=== PATIENT | male | born 1955 | race Caucasian/White ===

== ENCOUNTER → 2016-12-02 06:50 | Day surgery (SDC) | payer BC ==
[~2016-12-02 06:50] MED LIST: Buffered Lidocaine 1% SYRIN* 3 ML/SYR SYRINGE INTRADERM ONE; Bupivacaine 0.25% EPI 200,000* 30 ML SDV ONE; Dexamethasone IV* 4 MG/ML 1 ML (4 MG) IV SLOW PU ONE; Dexamethasone IV* 4 MG/ML 1 ML (4 MG) ONE; Famotidine IV* 10 MG/ML 2 ML (20 mg) IV ONE; Famotidine IV* 10 MG/ML 2 ML (20 mg) ONE; HYDROcodone/ACETAMIN 5-325 MG* 1 TAB PO PRN; Ketorolac INJ* 30 MG/ML 1 ML VIAL ONE; Lidocaine 2% PF* 5 ML VIAL ONE; Ondansetron INJ* 2 MG/ML VIAL ONE; PROCHLORPERAZINE INJ 5 MG/ML 2 ML VIAL IV PRN; Propofol* 10 MG/ML 20 ML BTL IV PUSH ONE; ceFAZolin 2 GM PREMIX(*) 2 GM/50 ML BAG IVPB ONE; fentaNYL* 50 MCG/ML 2 ML VIAL (100 MCG VIAL) IV PRN; fentaNYL* 50 MCG/ML 2 ML VIAL (100 MCG VIAL) ONE; methylPREDNISolone ACETATE 80* 80 MG/ML 1 ML VIAL ONE; oxyCODONE/Acetamin 5/325 MG* TAB PO PRN
[2016-12-02 10:59] VITALS: BP 117/81
--- NOTE | 2016-12-03 00:11 | OP ---
DATE OF OPERATION: 12/02/16 [facility] DATE OF : 59 SURGEON: Briana Gracía MD PHOTO EQUIPMENT TECHNICIAN: DELVIN Davis. Administrative Manager was needed for the entirety of the case to help with positioning, retraction, and was utilized throughout all portions of the case. ANESTHESIOLOGIST: Dr. Ronel Marino. ANESTHESIA: General. PRE-OP DIAGNOSES: Left knee medial meniscus tear and osteoarthritis. POST-OP DIAGNOSES: Medial and lateral meniscus tear as well as mild osteoarthritis. OPERATIVE PROCEDURE: Left knee arthroscopy with partial medial meniscectomy, partial lateral meniscectomy, chondroplasty of the medial and patellofemoral compartment. Injection of 80 mg of Depo-Medrol. COMPLICATIONS: None. ESTIMATED BLOOD LOSS: Minimal. INDICATIONS: Javon Cornejo is a 61-year-old male who has had persistent left knee pain with catching and locking mechanical symptoms. It has been going on for at least one year now. He states in the last few months, it waxed and waned, but in the last few weeks, it has increased significantly. He had an injection previously, which helped quite a bit with his pain. At this point , he has failed conservative management and would like to proceed with operative treatment. Risks and benefits were discussed at length included but were not limited to bleeding, infection, damage to nerves, vessels, surrounding structures, wound nonhealing, persistent pain, need for further surgery, worsening of arthritis, risk of anesthesia, risk of DVT, recurrence of Haney's cyst. He has elected to proceed. DESCRIPTION OF PROCEDURE: The patient was greeted in the preoperative area by the attending surgeon. Correct extremity was marked, consent was confirmed. The patient was brought back to the operating suite where he was placed in a supine position on the operating room table. He then underwent LMA intubation, which he tolerated without difficulty after which a nonsterile tourniquet was placed high in the proximal thigh. The lateral post was positioned. Knee was examined, found to have around 0 to 120 degrees of motion. Stable ligamentous exam and moderate effusion. After a miniature surgical pause, the left knee was intra-articularly injected with 0.25% Marcaine with epi. The left leg was then prepped and draped in the usual sterile fashion beginning with a chlorhexidine soap, scrub, and alcohol wipe, and a final prep with ChloraPrep. After appropriate surgical pause indicating site, side, procedure, administration of antibiotics, the anterolateral portal was made sharply with an 11 blade. The scope was introduced to the joint. There was abundant serous fluid that was present. The patella had grade 0 to 1 change. The trochlear had areas of grade 2 and 3 changes with unstable flaps. The medial and lateral gutters were without loose debris. There was abundant synovitis anteriorly. The scope was placed into the notch and the medial portal was made in outside- in fashion. Shaver was used to debride the abundant synovitis that was present. The ACL and PCL were intact, but has some evidence of degeneration. There was spiking of the tibial spine. The knee was lacking full extension on valgus stress and the medial compartment was examined. There were areas of grade 2 changes in the medial femoral condyle with unstable flaps that were debrided back. The medial meniscus was identified and had degenerative tearing posteriorly with unstable flaps. The neli and biters were used to debride this back. The tibial plateau had grade 2 changes with unstable flap, which was also debrided back using a chondroplasty. Once this compartment was complete, the knee was placed in a [id number] position and the lateral meniscus was examined. There were grade 1 changes to the femoral condyle and grade 1 changes to the tibial plateau. There was unstable fraying of the root of the meniscus, which was debrided back and there was mild unstable fraying within the body of the meniscus which was debrided back, but the vast majority of the meniscus was intact. The knee was then placed in extension and the synovectomy was performed with electrocautery to use to maintain hemostasis. A small chondroplasty of the trochlea was also done for the unstable flaps. The knee was then placed in extension. Medial compartment examined again and any further loose flaps were then debrided back. Final images were obtained. All loose debris and fluid were removed from the joint and the knee was intra- articularly injected with 0.25% Marcaine plain with 80 mg of Depo-Medrol. Portals were closed with 3-0 nylon. Sterile dressings were applied and he was awoken from anesthesia in stable condition. POSTOPERATIVE PLAN: He will be weightbearing as tolerated. He will not be allowed to run or jump or do very heavy impact activities for about 6 weeks. He will be discharged with pain medications. DVT prophylaxis was considered, but deferred due to no previous personal or family history. I will see the patient back in 10 to 14 days. CC: PEPE ____ [id number]/[facility] #: [id number] SALLY
== END | disposition home or self-care (01) ==
LOC: OR 06:50
PROVIDERS: ATTEND Orthopaedic Surgery
DX: S83.242A Other tear of medial meniscus, current injury, left knee, initial encounter (principal); S83.282A Other tear of lateral meniscus, current injury, left knee, initial encounter; X58.XXXA Exposure to other specified factors, initial encounter; M17.12 Unilateral primary osteoarthritis, left knee; Z87.891 Personal history of nicotine dependence
CPT/HCPCS: J0690; J1040; J1100; J1885; J2405; J2704; J3010

== ENCOUNTER 2018-02-01 06:23 | Day surgery (SDC) | payer BC, OTHER ==
--- NOTE | 2018-01-26 16:03 | HP ---
PREOPERATIVE HISTORY AND PHYSICAL: DATE OF ADMISSION/SURGERY: 02/01/18 - [facility] DATE OF OFFICE VISIT/ENCOUNTER: 01/19/18 ATTENDING SURGEON: Karo Tamez MD.* (DICTATED BY DELVIN HARDIN) PROCEDURE: Right wrist triangular fibrocartilage complex debridement, arthroscopy, possible scapholunate ligament repair. CHIEF COMPLAINT: Right wrist pain. HISTORY OF PRESENT ILLNESS: This is a 62-year-old male, who sustained injury to his right wrist in September 2017 when he fell off his truck at work. Since then, he has had persistent pain particularly on the ulnar aspect. An MRI showed a TFCC tear and a possible scapholunate ligament tear. Conservative treatment has failed to resolve his pain and he has now agreed to proceed with surgical intervention. PAST MEDICAL HISTORY: Unremarkable. PAST SURGICAL HISTORY: Bowel resection. CURRENT MEDICATIONS: None. ALLERGIES: No known drug allergies. FAMILY MEDICAL HISTORY: Noncontributory. SOCIAL HISTORY: The patient is currently unemployed. He is a former smoker, he quit approximately 6 years ago, prior to that he smoked a pack per day for approximately 25 years. He denies recreational drug use. He drinks alcohol on occasion. REVIEW OF SYSTEMS: General: Negative for fevers, chills or night sweats, unexplained weight or gain. No known anesthesia problems in the past. HEENT: Negative for headache, lightheadedness, syncopal episodes, visual changes. Integumentary: Negative for abrasions, lesions, or open wounds. Cardiothoracic : Negative for hypertension, chest pain, palpitations, edema. Respiratory: Negative for shortness of breath with exertion, chronic cough, wheezing. GI: Negative for nausea, vomiting, diarrhea, constipation, GERD. : Negative for nocturia, urinary frequency, urgency, history of UTIs, kidney problems. Musculoskeletal: Positive for current complaint. Neurological: Negative for paresthesias, numbness, history of seizure, stroke, poor balance. Endocrine: Negative for diabetes and thyroid issues. Hematologic: Negative for easy bruising, anemia, bleeding disorders, history of DVT. Infectious Disease: Negative for history of MRSA, hepatitis C, HIV. PHYSICAL EXAMINATION GENERAL: Well-developed, well-nourished, 62-year-old male, in no acute distress. VITAL SIGNS: Height 5 feet 11-1/2 inches, weight 215 pounds, pulse rate 70, blood pressure 126/78. HEENT: Normocephalic, atraumatic. Pupils are equal, round, and reactive to light and accommodation. Throat is clear. NECK: Supple. No palpable lymph nodes. PULMONARY: Lungs are clear to auscultation bilaterally. No wheezes, rales, or rhonchi. CARDIOVASCULAR: Regular rate and rhythm. S1, S2. No murmurs, rubs, or gallops. No edema. ABDOMEN: Positive bowel sounds, soft, nontender. NEUROLOGICAL: Alert and oriented x3. Cranial nerves II through XII are intact. Sensation is intact to light touch. MUSCULOSKELETAL: On exam of the right wrist, he has mild swelling visible along the dorsum of the wrist and down into the hand. There is tenderness to palpation just distal to the ulna and along the dorsum of the wrist. He has good motion in his wrist, but increased pain with both full flexion and extension as well as with full pronation. He does not have any limitations in pronation or supination. Increased pain with Vargas shift test. No click is palpable. Neurovascular function is intact. Good range of motion of his fingers. IMAGING STUDIES: MRI of the right wrist shows a tear in the TFCC and a possible scapholunate ligament tear. PLAN: The patient is scheduled to undergo a right wrist triangular fibrocartilage complex debridement, arthroscopy, possible scapholunate ligament repair with Dr. Tamez on 02/01/18. He will return to the office 9 to 10 days postop for followup and suture removal. He is planning on using over-the- counter medications for postoperative pain management. DELVIN HARDIN [id number]/[facility] #: [id number] [facility]OVE HOSPITALAnju
[~2018-02-01 06:23] MED LIST changes: +Buffered Lidocaine 0.9% SYRIN* 5 ML/SYR SYRINGE INTRADERM ONE; -Buffered Lidocaine 1% SYRIN* 3 ML/SYR SYRINGE INTRADERM ONE; -Bupivacaine 0.25% EPI 200,000* 30 ML SDV ONE; -Dexamethasone IV* 4 MG/ML 1 ML (4 MG) IV SLOW PU ONE; -Dexamethasone IV* 4 MG/ML 1 ML (4 MG) ONE; -Famotidine IV* 10 MG/ML 2 ML (20 mg) IV ONE; -Famotidine IV* 10 MG/ML 2 ML (20 mg) ONE; -HYDROcodone/ACETAMIN 5-325 MG* 1 TAB PO PRN; -Ketorolac INJ* 30 MG/ML 1 ML VIAL ONE; -Lidocaine 2% PF* 5 ML VIAL ONE; +Ondansetron INJ* 2 MG/ML VIAL IV ONE; -Ondansetron INJ* 2 MG/ML VIAL ONE; +Ondansetron ODT TAB* 4 MG ONE; -PROCHLORPERAZINE INJ 5 MG/ML 2 ML VIAL IV PRN; -Propofol* 10 MG/ML 20 ML BTL IV PUSH ONE; -ceFAZolin 2 GM PREMIX(*) 2 GM/50 ML BAG IVPB ONE; -fentaNYL* 50 MCG/ML 2 ML VIAL (100 MCG VIAL) IV PRN; -fentaNYL* 50 MCG/ML 2 ML VIAL (100 MCG VIAL) ONE; -methylPREDNISolone ACETATE 80* 80 MG/ML 1 ML VIAL ONE; -oxyCODONE/Acetamin 5/325 MG* TAB PO PRN
[2018-02-01] MEDS ORDERED: ceFAZolin 2 GM PREMIX (*) 2 GM/50 ML BAG IVPB ONE (06:33)
[2018-02-01] MEDS ORDERED: diPHENhydraMINE IV* 50 MG/ML 1 ml VIAL (BENADRYL) IV PRN (06:58)
[2018-02-01] MEDS ORDERED: Naloxone* 0.4 MG/ML 1 ML VIAL IV PRN (06:58)
[2018-02-01] MEDS ORDERED: fentaNYL* 50 MCG/ML 2 ML VIAL (100 MCG VIAL) IV PRN (06:58)
[2018-02-01] MEDS ORDERED: HYDROmorphone INJ* 1 MG/ML CARPUJECT SYRINGE IV PRN (06:58)
[2018-02-01] MEDS ORDERED: oxyCODONE/Acetamin 5/325 MG* TAB PO PRN (06:58)
[2018-02-01] MEDS ORDERED: PROCHLORPERAZINE INJ 5 MG/ML 2 ML VIAL IV PRN (06:58)
[2018-02-01] MEDS ORDERED: oxyCODONE TAB* 5 MG TAB PO PRN (06:58)
[2018-02-01] MEDS ORDERED: Acetaminophen TAB* 325 MG PO PRN (06:58)
[2018-02-01] MEDS ORDERED: fentaNYL* 50 MCG/ML 2 ML VIAL (100 MCG VIAL) ONE (07:00)
[2018-02-01] MEDS ORDERED: Midazolam* 1 MG/ML 2 ML VIAL (2 MG) ONE (07:00)
[2018-02-01] MEDS ORDERED: Lidocaine 2% MPF* 2 ML VIAL ONE (07:04)
[2018-02-01] MEDS ORDERED: Ketorolac INJ* 30 MG/ML 1 ML VIAL ONE (07:04)
[2018-02-01] MEDS ORDERED: Propofol* 10 MG/ML 20 ML BTL IV PUSH ONE ×2 (07:04→07:05)
[2018-02-01] MEDS ORDERED: Bupivacaine 0.5% SDV PF* 30ML VIAL ONE (07:23)
[2018-02-01] MEDS ORDERED: methylPREDNISolone ACETATE 80* 80 MG/ML 1 ML VIAL ONE (08:27)
[2018-02-01 09:19] VITALS: BP 118/85
--- NOTE | 2018-02-02 05:15 | OP ---
DATE OF OPERATION: 02/01/18 [facility] DATE OF : 59 SURGEON: Karo Tamez MD YOGA INSTRUCTOR: DELVIN Manuel ANESTHESIA: General. PRE-OP DIAGNOSES: Triangular fibrocartilage complex tear and possible scapholunate ligament tear of the right wrist. POST-OP DIAGNOSES: 1. Triangular fibrocartilage complex tear and possible scapholunate ligament tear of the right wrist. 2. Degenerative changes of the right wrist and synovitis. OPERATIVE PROCEDURE: Right wrist arthroscopy, TFCC debridement, and synovectomy. INDICATIONS: Javon is a 62-year-old man, who injured his right wrist at work. MRI shows a possible scapholunate ligament tear and a TFCC tear. He presents for right wrist arthroscopy, TFCC debridement, and possible scapholunate ligament repair. ESTIMATED BLOOD LOSS: Zero. TOURNIQUET TIME: About 40 minutes. OPERATIVE FINDINGS: There was a complex significant tear of the central portion of the TFCC. There was abundant surrounding synovitis. There was synovitis surrounding the scapholunate ligament and perhaps a partial tear, but I was not able to pass the scope between the scaphoid and lunate from either the mid carpal or the radiocarpal joint. There were degenerative changes on the radius mostly at the radial styloid. The articular surface of the capitate was in good condition. The articular surface of the scaphoid and lunate were also in good condition. DESCRIPTION OF PROCEDURE: The patient was brought to the operating room, was given a general anesthetic and placed in the supine position on the operating room table with a tourniquet around his right upper arm. Skin of his right upper extremity was prepped and draped in the usual sterile fashion. The hand and forearm were exsanguinated and the tourniquet elevated to 250 mmHg. Ten pounds of traction was placed across the wrist and then the wrist joint was filled with 10 cc of 0.5% plain Marcaine and the arthroscopy portals injected with Marcaine as well. A stab incision was made just distal to Franco's tubercle and the arthroscope was placed in the radiocarpal joint. Diagnostic arthroscopy was performed with the above- noted findings. A second portal was created at the 4-5 interval and a 2.0 Gator shaver was placed in the joint and with the biter, the torn portion of the TFCC was debrided back to stable base. Surrounding synovitis was debrided as well. A third stab incision was then made distal to the first and the arthroscope was placed in the mid carpal joint , again with the above-described findings. The arthroscopy instruments were removed and the wounds were closed in interrupted fashion with 4-0 nylon suture. 80 mg of Depo-Medrol with 3 cc of 1% plain lidocaine was injected into the radiocarpal joint and then the wounds were dressed with Xeroform, 4x4, Webril, and an Kameron wrap with a volar splint. The patient tolerated the procedure well and was brought to the recovery room in good condition. [id number]/[facility] #: [id number] SALLY
== END 2018-02-01 09:21 | disposition home or self-care (01) ==
LOC: OREAST 06:23
PROVIDERS: ATTEND Orthopaedic Surgery
DX: S66.811A Strain of other specified muscles, fascia and tendons at wrist and hand level, right hand, initial encounter (principal); Z87.891 Personal history of nicotine dependence; Z68.30 Body mass index [BMI] 30.0-30.9, adult; V87.8XXA Person injured in other specified noncollision transport accidents involving motor vehicle (traffic), initial encounter; Y92.89 Other specified places as the place of occurrence of the external cause; Y99.0 Civilian activity done for income or pay
CPT/HCPCS: A9270-GY; J0690; J1040; J1885; J2250; J2704; J3010

== ENCOUNTER 2018-02-25 17:48 | Inpatient (IN) | payer MEDICAID, OTHER ==
[2018-02-25 18:23] LABS: ABS Basophils 0.1 10^3/ul (0-0.2); ABS Eosinophils 0.2 10^3/ul (0-0.6); ABS Lymphocytes 2.2 10^3/ul (1.0-4.8); ABS Monocytes 0.6 10^3/ul (0-0.8); ABS Neutrophils 5.7 10^3/ul (1.5-7.7); ABS Nucleated RBC 0 10^3/ul; Hematocrit 41 % (42-52); Hemoglobin 14.3 g/dl (14.0-18.0); Lymphocyte % 25.5 % (25-47); Mean Corpuscular HGB Conc 35 g/dl (31-36); Mean Corpuscular Hemoglobin 30 pg (27-31); Mean Corpuscular Volume 86 fL (80-94); Mean Platelet Volume 7.3 um3 (7.4-10.4); Nucleated Red Blood Cells % 0.1; Platelet Count 234 10^3/ul (150-450); Red Blood Count 4.84 10^6/ul (4.00-5.40); Red Cell Distribution Width 14 % (10.5-15); White Blood Count 8.8 10^3/ul (3.5-10.8)
--- NOTE | 2018-02-25 18:35 | RAD ---
INDICATION: Left-sided chest pain with radiation to the left arm COMPARISON: Chest x-ray August 24, 2006 TECHNIQUE: Single AP portable view of the chest was obtained. FINDINGS: Image quality is compromised due to the relative inferiority of a portable chest x-ray. The heart and mediastinum exhibit normal size and contour. The lungs are grossly clear. There is no evidence of a large pleural effusion. Visualized bones are normal for the patient's age. IMPRESSION: No radiographic evidence for acute cardiopulmonary abnormality on this portable chest x-ray.
[2018-02-25 18:37] LABS: EGFR Non-African American 75.4 (>60)
[2018-02-25] MEDS ORDERED: Acetaminophen TAB* 325 MG PO PRN (20:55)
[2018-02-25] MEDS ORDERED: Morphine VIAL* 4 MG/ML VIAL (1 ml vial) IV PRN (21:00)
[2018-02-25] MEDS ORDERED: Nitroglycerin TAB 0.4 MG* 0.4 MG TAB SL PRN (21:01)
--- NOTE | 2018-02-25 21:35 | ED ---
Lexus Alexander Rebecca, scribed for Morgan Proctor MD on 02/25/18 at 1835 . HPI Chest Pain - HPI Summary HPI Summary: Pt is a 62 y/o M who presents to ED c/o CP for the last 2 days, gradually worsening. Pain has been intermittent since onset, alleviated by laying down, aggravated by exertion. Pain was not present upon waking up but whenever he attempts to be active, the pain is worse, proportionate to the level of exertion. Pain is located from the midsternum across the left side of the chest and radiates into the left shoulder/arm. Has taken 650 mg ASA today, which alleviated sx, though pain is gradually returning. On triage, pain was moderate ranked 4/10. Additionally c/o dizziness and lightheadedness when trying to hike , and L hand numbness. FHx CAD, no PMHx HTN, CAD. - History of Current Complaint Chief Complaint: EDChestPainROMI Time Seen by Provider: 02/25/18 18:22 Hx Obtained From: Patient Onset/Duration: Started Days Ago - 2 days, Still Present Timing: Intermittent Current Severity: Moderate Pain Intensity: 4 Pain Scale Used: 0-10 Numeric Chest Pain Location: Mid Sternal, Left Anterior Chest Pain Radiates: Yes Chest Pain Radiates To:: Arm - Left Aggravating Factor(s): Exertion Alleviating Factor(s): Other: - Laying down Associated Signs and Symptoms: Positive: Dizziness, Lightheadedness - Allergy/Home Medications Allergies/Adverse Reactions: Allergies Allergy/AdvReac Type Severity Reaction Status Date / Time No Known Allergies Allergy Verified 02/01/18 06:42 PMH/Surg Hx/FS Hx/Imm Hx Endocrine/Hematology History: Denies: Hx Anticoagulant Therapy, Hx Blood Disorders Cardiovascular History: Denies: Hx Coronary Artery Disease, Hx Hypertension Musculoskeletal History: Reports: Hx Arthritis - BOTH KNEES Sensory History: Denies: Hx Contacts or Glasses, Hx Hearing Aid Opthamlomology History: Denies: Hx Contacts or Glasses - Surgical History Surgery Procedure, Year, and Place: BOWEL SURGERY [place]. 11/2016 LEFT MM TEAR [facility] Hx Anesthesia Reactions: No Infectious Disease History: No Infectious Disease History: Denies: Traveled Outside the [place] in Last 30 Days - Family History Known Family History: Positive: Cardiac Disease, Hypertension, Diabetes, Other - HLD - Social History Alcohol Use: Rare Substance Use Type: Reports: None Smoking Status (MU): Former Smoker Type: Cigarettes Amount Used/How Often: 1PPD Have You Smoked in the Last Year: No Review of Systems Positive: Chest Pain Neurological: Other - Dizziness, lightheadedness Positive: Numbness - L hand numbness All Other Systems Reviewed And Are Negative: Yes Physical Exam - Summary Physical Exam Summary: Appearance: The patient is well-nourished in no acute distress and in no acute pain. Skin: The skin is warm and dry and skin color reflects adequate perfusion. HEENT: The head is normocephalic and atraumatic. The pupils are equal and reactive. The conjunctivae are clear and without drainage. Nares are patent and without drainage. Mouth reveals moist mucous membranes and the throat is without erythema and exudate. The external ears are intact. The ear canals are patent and without drainage. The tympanic membranes are intact. Neck: The neck is supple with full range of motion and non-tender. There are no carotid bruits. There is no neck vein distension. Respiratory: Chest is non-tender. Lungs are clear to auscultation and breath sounds are symmetrical and equal. Cardiovascular: Heart is regular rate and rhythm. There is no murmur or rub auscultated. There is no peripheral edema and pulses are symmetrical and equal. Abdomen: The abdomen is soft and non-tender. There are normal bowel sounds heard in all four quadrants and there is no organomegaly palpated. Musculoskeletal: There is no back tenderness noted. Extremities are non-tender with full range of motion. There is good capillary refill. There is no peripheral edema or calf tenderness elicited. Neurological: Patient is alert and oriented to person, place and time. The patient has symmetrical motor strength in all four extremities. Cranial nerves are grossly intact. Deep tendon reflexes are symmetrical and equal in all four extremities. Psychiatric: The patient has an appropriate affect and does not exhibit any anxiety or depression. Triage Information Reviewed: Yes Vital Signs On Initial Exam: Initial Vitals Temp Pulse Resp BP Pulse Ox 98.9 F 72 18 146/94 96 02/25/18 17:49 02/25/18 17:49 02/25/18 17:49 02/25/18 17:49 02/25/18 17:49 Vital Signs Reviewed: Yes Diagnostics - Vital Signs Vital Signs Temp Pulse Resp BP Pulse Ox 02/25/18 18:02 66 15 117/83 96 02/25/18 17:49 98.9 F 72 18 146/94 96 - Laboratory Lab Results: Lab Results 02/25/18 Range/Units 18:07 WBC 8.8 (3.5-10.8) 10^3/ul RBC 4.84 (4.00-5.40) 10^6/ul Hgb 14.3 (14.0-18.0) g/dl Hct 41 L (42-52) % MCV 86 (80-94) fL MCH 30 (27-31) pg MCHC 35 (31-36) g/dl RDW 14 (10.5-15) % Plt Count 234 (150-450) 10^3/ul MPV 7.3 L (7.4-10.4) um3 Neut % (Auto) 65.1 (38-83) % Lymph % (Auto) 25.5 (25-47) % Morrow % (Auto) 6.7 (0-7) % Eos % (Auto) 2.0 (0-6) % Baso % (Auto) 0.7 (0-2) % Absolute Neuts (auto) 5.7 (1.5-7.7) 10^3/ul Absolute Lymphs (auto) 2.2 (1.0-4.8) 10^3/ul Absolute Monos (auto) 0.6 (0-0.8) 10^3/ul Absolute Eos (auto) 0.2 (0-0.6) 10^3/ul Absolute Basos (auto) 0.1 (0-0.2) 10^3/ul Absolute Nucleated RBC 0 10^3/ul Nucleated RBC % 0.1 Result Diagrams: 02/25/18 18:07 02/25/18 18:07 Lab Statement: Any lab studies that have been ordered have been reviewed, and results considered in the medical decision making process. - Radiology CXR Xray Interpretation: No Acute Changes - No radiographic evidence for acute cardiopulmonary abnormality on this portable chest x-ray. ED physician reviewed this radiology report. Radiology Interpretation Completed By: Radiologist - EKG 1758 Cardiac Rate: NL - 64 bpm EKG Rhythm: Sinus Rhythm Chest Pain Course/Dx - Course Course Of Treatment: Mr. Cornejo presented to the emergency department with an unnerving story of chest pain with exertion over the last 2 days. He has no significant family history or medical history, however he does have about a 25- pack-year smoking history having quit 5 years ago. Initial EKG and troponin were negative the hospitalists were asked to consult on him and admit him for rule out. - Diagnoses Provider Diagnoses: Chest pain - Provider Notifications Discussed Care Of Patient With: Ronaldo Bailey Time Discussed With Above Provider: 19:25 Instructed by Provider To: Other - Accepts pt for admission - Critical Care Time Critical Care Time: 30-74 min Discharge - Sign-Out/Discharge Documenting (check all that apply): Discharge/Admit/Transfer - Admit - Discharge Plan Condition: Stable Disposition: ADMITTED TO [facility] Referrals: Non Staff,Doctor [Medical Doctor] - - Billing Disposition and Condition Condition: STABLE Disposition: Admitted to [facility] The documentation as recorded by the Lexus umaña Rebecca accurately reflects the service I personally performed and the decisions made by me, Morgan Proctor MD.
[2018-02-25] MEDS ORDERED: Enoxaparin(*) 40 MG/0.4 ML SYR SUBCUT SCH (23:00)
--- NOTE | 2018-02-25 23:22 | HP ---
ADMITTING HISTORY AND PHYSICAL: DATE OF ADMISSION: 02/25/18 CHIEF COMPLAINT: Exertional chest pain. HISTORY OF PRESENT ILLNESS/HOSPITAL COURSE: The patient is a 62-year-old gentleman who does not follow up regularly with primary care physician and hence no documented past medical history, who was in his usual state of health until a few hours prior to admission when he says that he went hiking with his family and experienced chest pain that he is unable to describe in quality. He mentions that the chest pain then radiated to his left arm and at the tips of his hands causing some numbing sensation, which lasted for a few hours. He mentions that the chest pain is exacerbated by exertion and gets better with rest after a few minutes to hours. He also mentions that he took two doses of 325 mg aspirin today, which he felt improved his chest pain. He took two doses of 325 mg aspirin because he already took one dose of 325 mg dose of aspirin initially and his thought that he only took one baby aspirin and encouraged him to take four tablets altogether, which he did. By the time he arrived in the ED, he was chest pain-free. The patient was also admitted and discharged last month for right wrist triangular fibrocartilage complex debridement with arthroscopy and was discharged in his usual state of health. PAST MEDICAL HISTORY: He notes that he does get a yearly checkup with a clinic that tested carotid arteries and his cholesterol and everything was "clear." However, he does not have a primary care physician that follows him and interpret these results. He describes a history of a possible carotid artery stenosis, though not enough to intervene. However, as mentioned, nobody follows these tests as an outpatient after the test is done. Conversation regarding need for primary care physician transpired during this visit. No other documented past medical history. PAST SURGICAL HISTORY: Bowel resection as well as status post right wrist triangular fibrocartilage complex debridement with arthroscopy last month. ALLERGIES: NKDA. FAMILY HISTORY: His mother has history of CHF and high cholesterol and diabetes , although unclear when she actually was diagnosed with heart disease. SOCIAL HISTORY: The patient is a full code. MOLST form had been updated and reviewed. The patient is currently unemployed and currently being cleared for worker's comp. He mentions that he is a former smoker that quit about 6 years ago and prior to that he smoked about one pack per day for about 25 years. He denies any recreational drug use, although he had some history with cocaine and marijuana, but has not had any contact with illicit drugs for about 20 years. He drinks alcohol on occasion. REVIEW OF SYSTEMS: Exertional chest pain as described above. Denied any shortness of breath. Denied any headache, dizziness, fevers, chills, nausea, vomiting, abdominal pain, diarrhea, constipation, pain, and/or increased frequency on urination, myalgias, arthralgias, throat pain, or new skin lesions. The rest of the 14-point review of systems were otherwise unremarkable. PHYSICAL EXAMINATION GENERAL APPEARANCE: The patient is awake, alert, and oriented x3, not in acute distress. VITAL SIGNS: Reveals the most recent vital signs of records with blood pressure of 119/84, heart rate of 61 per minute, respiratory rate of 20 per minute, saturating at 95% on room air. HEENT: Normocephalic, atraumatic. PERRLA. Extraocular muscles intact. Negative for icterus. Moist oral mucosa. Negative throat erythema. NECK: Soft, supple with no cervical lymphadenopathy. No JVD. CHEST: Clear to auscultation bilaterally. Good air entry. No wheezes, rales, no rhonchi. HEART: S1, S2 within normal limits. Regular rate and rhythm. No murmurs, rubs , or gallops. ABDOMEN: Soft, nondistended, nontender. Normoactive bowel sounds x4. PSYCHIATRIC: No active psychosis, depression, suicidal or homicidal ideations. SKIN: Warm to touch. ASSESSMENT AND PLAN: Are as follows: 1. Exertional chest pain. His KERRI score is currently 0. However, he does note cocaine use in the past as well as significant smoking history along with a possible family history of coronary artery disease and hence likely indicative of possible angina at this point. We will admit the patient and place the patient on telemetry, trend his troponins x3. First set of troponins have been reviewed along with the laboratories, all of which were unremarkable. A discussion during this visit transpired regarding plan of management. We will order for echocardiogram and a stress test. If stress test and the rest of the workup ordered in his hospitalization is unremarkable given his significant history and risk factors for coronary artery disease, he was advised to talk with his primary care physician for a possible CT calcium score if his stress test is found to be negative. A conversation of when the stress test could be done also transpired and I have informed them that since tomorrow is Wednesday, I am unsure whether his stress test could be done during the weekend. However, we will defer with the patient's hospitalist MD in a.m. to either refer the patient to cardiology if the patient wants to go home prior to completing his workup and hence we will defer. We will place the patient on aspirin 325 daily starting tomorrow since he received two doses today. We will place the patient on oxygen per protocol, morphine p.r.n. for breakthrough pain , uncontrolled by nitroglycerin sublingual p.r.n. As mentioned, the patient no longer has any chest pain by the time he arrived in the ER, and we will continue to observe. 2. Prophylaxis. We will place the patient on deep vein thrombosis prophylaxis. 3. Disposition. We will check for fasting lipid levels, HbA1c and TSH. We will continue watch for weaning as above. ADDENDUM: Pt was placed on Lovenox 1mg/kg SQ q12H x2 given mildly elevated troponin on second draw. Will defer with rounding team in AM to re-evaluate for any future needs of anticoagulation. [id number]/[facility] #: [id number] SALLY
[2018-02-26] MEDS ORDERED: Enoxaparin(*) 60 MG/0.6 ML SYR SUBCUT ONE
[2018-02-26 06:42] LABS: ABS Basophils 0.1 10^3/ul (0-0.2); ABS Eosinophils 0.2 10^3/ul (0-0.6); ABS Lymphocytes 2.2 10^3/ul (1.0-4.8); ABS Monocytes 0.6 10^3/ul (0-0.8); ABS Neutrophils 4.7 10^3/ul (1.5-7.7); ABS Nucleated RBC 0 10^3/ul; Eosinophil % 2.7 % (0-6); Hematocrit 42 % (42-52); Hemoglobin 14.6 g/dl (14.0-18.0); Lymphocyte % 28.6 % (25-47); Mean Corpuscular HGB Conc 34 g/dl (31-36); Mean Corpuscular Hemoglobin 30 pg (27-31); Mean Corpuscular Volume 86 fL (80-94); Mean Platelet Volume 7.4 um3 (7.4-10.4); Nucleated Red Blood Cells % 0; Platelet Count 211 10^3/ul (150-450); Red Cell Distribution Width 14 % (10.5-15); White Blood Count 7.7 10^3/ul (3.5-10.8)
[2018-02-26 07:01] LABS: EGFR Non-African American 77.1 (>60)
[2018-02-26] MEDS ORDERED: Morphine VIAL* 4 MG/ML VIAL (1 ml vial) IV PRN (07:57)
[2018-02-26] MEDS ORDERED: Aspirin TAB* 325 MG PO SCH (09:00)
[2018-02-26] MEDS: Atorvastatin* 80 MG TAB PO SCH (09:18)
[2018-02-26] MEDS: Metoprolol Tartrate TAB* 25 MG PO SCH ×2 (09:18→20:36)
[2018-02-26] MEDS: Heparin VIAL(*) 5000 UNITS/ML VIAL (FIVE THOUSAND) IV PRN (10:44)
[2018-02-26] MEDS: Heparin DRIP 25,000 UNITS(*) 25,000 UNITS/500 ML BAG IV SCH (10:44)
[2018-02-26] MEDS ORDERED: NIFEdipine CAP* 10 MG PO ONE (11:04)
--- NOTE | 2018-02-26 11:19 | PN ---
Cardiology Progress Note Date of Service: 02/26/18 - CC: chest and arm pain Full note to be dictated today. Pt exercises regularly on hills w/o co. Anginal symptoms started Wednesday with exertion. 8 hours angina yesterday, responded to NTG, but severe MESSER. This AM CP recurred after walking to bathroom, mid sternal to L shoulder and arm. NOW: residual LA numbness. CAD risks: in his youth heavy cocaine, d/c'd ciagarettes 6+ years ago, LDL 140 , pt denies HTN, DM, FHx. ECG normal Exam: no murmurs or rubs, good radial and femoral and PT pulses. No bruits, lungs clear. ECG with arm pain: NSR, normal ST's Peak troponin 0.19 A/P: 62 yo with NQMI, CP recurs with minimal stress. I suspect plaque cracked. Agree Heparin GTT, beta nathaly, ASA and high dose statin. Added procardia as pt had severe MESSER iwth NTG in ED. Will add Brilinta, discussed iwth Dr Darling. If unable to stabilize medically will take to [employer] over the weekend instead of Wednesday.
[2018-02-26] MEDS ORDERED: Ticagrelor* 90 MG TAB PO ONE (11:20)
[2018-02-26] MEDS ORDERED: Enoxaparin(*) 100 MG/ML SYR SUBCUT SCH (12:00)
--- NOTE | 2018-02-26 13:32 | PN ---
Subjective Date of Service: 02/26/18 Interval History: HOSPITALIST PROGRESS NOTE Patient seen and examined at bedside. Care reviewed and d/w Johanny Mays RN. He feels better today. States chest pain is resolved, but still has some left arm discomfort. No N/V or dyspnea. Family History: Unchanged from Admission Social History: Unchanged from Admission Past Medical History: Unchanged from Admission Objective Active Medications: Acetaminophen (Tylenol Tab*) 650 mg PO Q4H PRN PRN Reason: FEVER/PAIN Last Admin: 02/26/18 10:35 Dose: 650 mg Aspirin (Aspirin 81 Mg Chew Tab*) 81 mg PO DAILY [facility] Atorvastatin Calcium (Lipitor*) 80 mg PO DAILY [facility] Last Admin: 02/26/18 09:18 Dose: 80 mg Heparin Sodium (Porcine) (Heparin Vial(*)) 0 units IV .PER PROTOCOL PRN PRN Reason: SEE PROTOCOL Last Admin: 02/26/18 10:44 Dose: 4,000 units Heparin Sodium/Dextrose (Heparin Drip 25,000 Units(*)) 25,000 units in 500 mls @ 0 mls/hr IV PER RATE [facility]; Protocol Last Admin: 02/26/18 10:44 Dose: 20 mls/hr Metoprolol Tartrate (Lopressor Tab*) 25 mg PO BID [facility] Last Admin: 02/26/18 09:18 Dose: 25 mg Morphine Sulfate (Morphine Vial*) 2 mg IV Q6H PRN PRN Reason: PAIN Nitroglycerin (Nitroglycerin Tab 0.4 Mg*) 0.4 mg SL Q5M PRN PRN Reason: ANGINA Last Admin: 02/26/18 06:32 Dose: 0.4 mg Ticagrelor (Brilinta*) 90 mg PO BID [facility] Vital Signs - 8 hr 02/26/18 02/26/18 02/26/18 06:25 07:12 07:58 Temperature 97.7 F Pulse Rate 65 67 Respiratory 19 Rate Blood Pressure 143/95 115/85 (mmHg) O2 Sat by Pulse 98 98 Oximetry 02/26/18 11:02 Temperature 98.2 F Pulse Rate 61 Respiratory 20 Rate Blood Pressure 142/90 (mmHg) O2 Sat by Pulse 97 Oximetry Oxygen Devices in Use Now: None Appearance: Pleasant gentleman lying in bed in NAD. Eyes: No Scleral Icterus Ears/Nose/Mouth/Throat: Mucous Membranes Moist Neck: Trachea Midline Respiratory: Symmetrical Chest Expansion and Respiratory Effort, Clear to Auscultation Cardiovascular: NL Sounds; No Murmurs; No JVD, RRR Abdominal: NL Sounds; No Tenderness; No Distention Extremities: No Edema Neurological: Alert and Oriented x 3, NL Muscle Strength and Tone Result Diagrams: 02/26/18 06:06 02/26/18 06:06 Assess/Plan/Problems-Billing Assessment: Mr. Cornejo is a 62yo M with a prior h/o tobacco abuse, bowel resection, limited contact with healthcare system, who presented to ED with c/o exertional CP, found to have NSTEMI. - Patient Problems (1) NSTEMI (non-ST elevated myocardial infarction) Comment: - Patient presented after episodes of exertional chest pain (while weeding, then while hiking). - Chest pain free now, but has some left arm discomfort. Had CP relief with NTG , but developed severe MESSER after. - EKG shows no ischemic changes and troponin peaked at 0.19. - Medical management with Aspirin, Heparin drip, metoprolol, high dose statin. - Awaiting echocardiogram. - Cardiology consult requested. - Plan for cardiac cath 02/28/18 or sooner if not able to control symptoms with medication. - If pain recurs, will transfer to ICU for nitro drip. (2) DVT prophylaxis Comment: - Heparin drip. (3) Full code status Status and Disposition: Inpatient for management of NSTEMI. (Veronica [phone]) was called and updated.
--- NOTE | 2018-02-26 13:44 | CONS ---
CC: Hospitalist Service CONSULTATION REPORT: DATE OF CONSULT: 02/26/18 REASON FOR CONSULT: Chest pain and elevated troponins. CHIEF COMPLAINT: Chest and arm pain. HISTORY OF PRESENT ILLNESS: Mr. Cornejo is a 62-year-old male who does not see physicians and has been in overall good health, exercising regularly until earlier this week. The patient was biking aggressively with hills Wednesday or Wednesday of this week as he usually does and felt fine. Then Wednesday, he got up to do some weed eating and developed substernal chest discomfort that radiated to the left shoulder and arm. This cleared with rest. He then was hiking yesterday and the pain was very severe and he presented to the emergency room. He estimates he had 8 hours of chest pain yesterday. In the emergency department, he was given nitroglycerin with resolution of the pain and he said that this gave him a significant headache and the pain came back when the nitroglycerin wore off. The patient was made pain free yesterday and woke chest pain free and walked to the bathroom this morning and then the discomfort came back. He again had upper substernal chest pain radiating to the left shoulder and arm. At the time I saw him, he had metoprolol, high-dose statin and a heparin drip initiated with resolution of the chest and shoulder pain, but with residual left arm numbness. The patient denies any recent travel, any medication changes. No over-the- counter medications. No recent changes in behavior, activity. The patient denies orthopnea or PND. No recent fevers, chills, sweats, or any other illness. PAST MEDICAL HISTORY: The patient has a past medical history that he states is negative for diabetes, hypertension, dyslipidemia, hyperglycemia. Degenerative arthritis with medial meniscal tear followed by Dr. García and Dr. Tamez. Diverticulosis was seen on colonoscopy 2013. PAST SURGICAL HISTORY: Includes: 1. Right wrist triangular fibrocartilage complex debridement/arthroscopy on 08/09. 2. On 12/02/2016, left knee arthroscopy for medial meniscotomy. 3. 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 4. Viral meningitis (recurrent). CURRENT INPATIENT MEDICATIONS: Include: 1. Tylenol p.r.n. 2. Aspirin 325 mg a day. 3. Lipitor 80 mg a day. 4. Heparin drip. 5. Lopressor 25 mg b.i.d. 6. Morphine p.r.n. Earlier in the admission, he had received Lovenox and nitroglycerin drip. ALLERGIES: He has no known drug allergies. FAMILY HISTORY: Negative for coronary artery disease. He has a sister who has some congenital retardation and physical issues. Dr. Bailey note's document his mother has history of congestive heart failure, high cholesterol and diabetes. SOCIAL HISTORY: The patient is unemployed, very active in the house, and exercising as above. He stopped smoking approximately 6 years ago, smoking a pack a day for 25 years. The patient used cocaine heavily, but does not used any in many, many years. REVIEW OF SYSTEMS: As above. Negative fevers, chills, sweats, change of bowel or bladder habits. No recent [id number] medications. No recent travel. No change in physical behaviors. No orthopnea. No PND. Even in hindsight no chest pain prior to earlier this week. All other 14-point review of systems was negative. PHYSICAL EXAM: On exam, the patient is 5 feet 11 inches, weighs 214 pounds with the BMI of 29. Vital signs, on presentation in the emergency room, blood pressure 146/94, pulse was 72. Currently, blood pressure 142/90 with pulse of 62, oxygen saturation 97% on room air, and temperature 98.2. General Appearance : Centripetally overweight, somewhat older gentleman, lying at 40 degrees, comfortable, in no acute distress. Psychologically pleasant and cooperative. Neurologically awake, alert, and oriented to person, place, and time. Cranial nerves II through XII intact. Grossly normal sensory and motor function in the upper and lower extremities. Normal gait. Skin: Warm and dry. Age- appropriate changes. No cyanosis or rashes. HEENT: Pupils are equal and round. Mucous membranes moist. Neck: Without thyromegaly or lymphadenopathy. 2+ carotid pulses, free of bruits. Breath sounds clear with good effort. No wheezes, rales, or rhonchi. Coronary: S1 and S2 regular. No murmurs or rubs. Abdomen: No epigastric discomfort. Active bowel sounds. Soft, nontender. No hepatomegaly. Lower extremity showed 2+ femoral pulses, free of bruits. The distal extremities show 1 to 2+ posterior tibial pulses that are symmetrical. DIAGNOSTIC STUDIES/LAB DATA: White count 7.7, hemoglobin 14.6, hematocrit 42, platelets 211. PTT 33.4. Sodium 140, potassium 4.7, chloride 109, bicarb 26, BUN 16, creatinine 0.99. Troponin #1 of 0.1, troponin #2 of 0.19, troponin #3 of 0.16, troponin #4 of 0.12. Total cholesterol 205, triglycerides 101, LDL cholesterol 140, and HDL cholesterol 45. TSH 1.45. Hemoglobin A1c 5.9. A 12-lead ECG in the emergency department of 02/25/18 shows normal sinus rhythm at 64 beats per minute. QRS axis plus 60. Normal AV and IV conduction times and normal ST. Repeated ECG done this morning at 10:30 shows normal sinus rhythm at 60 beats per minute. QRS axis plus 30 with normal AV and conduction times and normal ST segments. SUMMARY: In summary, Mr. Cornejo is a 62-year-old male presenting with non-Q wave myocardial infarction with atherosclerotic risks of distant cocaine use, distant smoking, mild dyslipidemia, possible hypertension, and hyperglycemia based on presentation and lack of regular physician followup. The patient needs to go to cardiac catheterization. I am going to try to clear his residual pain. If we cannot, he will need to go to cath sooner than later. I am going to try Procardia to see if we can get him pain free with vasodilation. If not, we will need to resume his nitroglycerin drip despite his secondary to headache. I suspect this is plaque that has cracked and therefore initiate Brilinta in addition to the heparin drip and aspirin. I agree with the beta-nathaly, aspirin , and heparin drips initiated and we can titrate to vital signs and symptoms. Additional recommendations will be made pending his clinical course and response to the above measures. [id number]/[facility] #: [id number] [facility] CENTERAnju
[2018-02-26 15:31] LABS: Urine Appearance Cloudy; Urine Blood Negative (Negative); Urine Color Yellow; Urine Ketones Negative (Negative); Urine Protein Negative (Negative); Urine Urobilinogen Negative (Negative)
--- NOTE | 2018-02-26 15:36 | RAD ---
INDICATION: Headache, MO, heparin drip evaluate for hemorrhage. COMPARISON: There are no prior studies available for comparison. TECHNIQUE: Contiguous axial sections of the brain were obtained from the skull base to the vertex without contrast. FINDINGS: The ventricles, cisterns and sulci are enlarged consistent with diffuse atrophy. There is most prominent in the sulci in the frontal lobes. No significant focal abnormality or mass effect is seen. There is no evidence for hemorrhage. No significant focal osseous abnormality is seen. The visualized portion of the paranasal sinuses and mastoid air cells appear clear. There is a fat density lesion anterior to the right frontal bone in the scalp measuring 2.5 x 1.0 cm in size most consistent with a lipoma. IMPRESSION: 1. NO EVIDENCE FOR ACUTE INTRACRANIAL ABNORMALITY. 2. 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 RECOMMEND CLINICAL CORRELATION TO STABILITY.
[2018-02-26] MEDS: amLODIPine TAB* 5 MG PO SCH (16:29)
[2018-02-26] MEDS ORDERED: HYDROmorphone INJ* 0.5 MG/0.5 ML SYRINGE IV SLOW PU PRN (16:43)
--- NOTE | 2018-02-26 19:51 | PN ---
Hospitalist Progress Note Date of Service: 02/26/18 HOSPITALIST ADDENDUM Patient reevaluated at bedside around 5PM. Still c/o throbbing MESSER 9/10 intensity, but appears to be comfortable, talking to his and watching TV. Declines more pain medication at this time, aware it is available. This is not the worst MESSER of his life. CT brain was negative for bleeding. Neuro exam is normal with CN II-XII grossly intact and no other focal neuro deficit. States he has had multiple episodes of meningitis (not bacterial), at least 6 times, admitted to different hospitals in [place] and [place], with extensive w/u, all negative. 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 Last episode was 4 years ago and he was admitted to [facility] obtain records. This MESSER now is different from his prior episodes. Chest/arm pain is resolved, denies dyspnea or palpitations. He knows to warn us if symptoms return, even if mild, as plan would be to transfer to ICU for Nitro drip and contact Dr. Darling for possible emergent cath.
[2018-02-26] MEDS: Ticagrelor* 90 MG TAB PO SCH (20:35)
[2018-02-27] MEDS: Heparin VIAL(*) 5000 UNITS/ML VIAL (FIVE THOUSAND) IV PRN ×2 (00:44→14:13)
[2018-02-27 05:37] LABS: ABS Basophils 0 10^3/ul (0-0.2); ABS Eosinophils 0.2 10^3/ul (0-0.6); ABS Lymphocytes 2.1 10^3/ul (1.0-4.8); ABS Monocytes 0.6 10^3/ul (0-0.8); ABS Neutrophils 6.1 10^3/ul (1.5-7.7); ABS Nucleated RBC 0 10^3/ul; Eosinophil % 2.4 % (0-6); Hematocrit 44 % (42-52); Hemoglobin 15.1 g/dl (14.0-18.0); Lymphocyte % 23.7 % (25-47); Mean Corpuscular HGB Conc 34 g/dl (31-36); Mean Corpuscular Hemoglobin 30 pg (27-31); Mean Corpuscular Volume 86 fL (80-94); Mean Platelet Volume 7.2 um3 (7.4-10.4); Nucleated Red Blood Cells % 0.1; Platelet Count 220 10^3/ul (150-450); Red Blood Count 5.13 10^6/ul (4.00-5.40); Red Cell Distribution Width 14 % (10.5-15)
[2018-02-27 05:58] LABS: EGFR Non-African American 83.9 (>60)
[2018-02-27] MEDS: Aspirin 81 mg CHEW TAB* 81 MG TAB.CHEW PO SCH (07:12)
[2018-02-27] MEDS: Atorvastatin* 80 MG TAB PO SCH (07:12)
[2018-02-27] MEDS: Ticagrelor* 90 MG TAB PO SCH ×2 (07:12→20:41)
[2018-02-27] MEDS: amLODIPine TAB* 5 MG PO SCH (07:12)
[2018-02-27] MEDS: Metoprolol Tartrate TAB* 25 MG PO SCH ×2 (07:12→20:41)
[2018-02-27] MEDS ORDERED: diPHENhydraMINE PO* 25 MG PO ONE (08:33)
[2018-02-27] MEDS ORDERED: Diazepam TAB(*) 5 MG PO ONE (08:33)
[2018-02-27] MEDS: Heparin DRIP 25,000 UNITS(*) 25,000 UNITS/500 ML BAG IV SCH (10:14)
--- NOTE | 2018-02-27 15:04 | PN ---
Subjective Date of Service: 02/27/18 Interval History: HOSPITALIST PROGRESS NOTE Patient seen and examined at bedside. Care reviewed and d/w Johanny Mays RN. He feels well today. MESSER is much improved, no further episodes of chest, left shoulder or arm pain/numbness. Denies palpitations or dyspnea. Family History: Unchanged from Admission Social History: Unchanged from Admission Past Medical History: Unchanged from Admission Objective Active Medications: Acetaminophen (Tylenol Tab*) 650 mg PO Q4H PRN PRN Reason: FEVER/PAIN Last Admin: 02/26/18 10:35 Dose: 650 mg Amlodipine Besylate (Norvasc Tab*) 5 mg PO DAILY [facility] Last Admin: 02/27/18 07:12 Dose: 5 mg Aspirin (Aspirin 81 Mg Chew Tab*) 81 mg PO DAILY [facility] Last Admin: 02/27/18 07:12 Dose: 81 mg Atorvastatin Calcium (Lipitor*) 80 mg PO DAILY [facility] Last Admin: 02/27/18 07:12 Dose: 80 mg Heparin Sodium (Porcine) (Heparin Vial(*)) 0 units IV .PER PROTOCOL PRN PRN Reason: SEE PROTOCOL Last Admin: 02/27/18 14:13 Dose: 4,000 units Hydromorphone HCl (Dilaudid Inj*) 0.5 mg IV SLOW PU Q4H PRN PRN Reason: PAIN Last Admin: 02/26/18 17:44 Dose: 0.5 mg Heparin Sodium/Dextrose (Heparin Drip 25,000 Units(*)) 25,000 units in 500 mls @ 0 mls/hr IV PER RATE [facility]; Protocol Last Admin: 02/27/18 10:14 Dose: 24 mls/hr Sodium Chloride (Ns 0.9% 1000 Ml*) 1,000 mls @ 125 mls/hr IV .per rate [facility] Metoprolol Tartrate (Lopressor Tab*) 25 mg PO BID [facility] Last Admin: 02/27/18 07:12 Dose: 25 mg Nitroglycerin (Nitroglycerin Tab 0.4 Mg*) 0.4 mg SL Q5M PRN PRN Reason: ANGINA Last Admin: 02/26/18 06:32 Dose: 0.4 mg Ticagrelor (Brilinta*) 90 mg PO BID [facility] Last Admin: 02/27/18 07:12 Dose: 90 mg Vital Signs - 8 hr 02/27/18 02/27/18 02/27/18 07:18 07:41 11:14 Temperature 98.3 F 99.3 F Pulse Rate 67 64 Respiratory 16 16 16 Rate Blood Pressure 131/79 127/74 (mmHg) O2 Sat by Pulse 98 97 Oximetry Oxygen Devices in Use Now: None Appearance: Pleasant gentleman lying in bed in NAD. Eyes: No Scleral Icterus Ears/Nose/Mouth/Throat: Mucous Membranes Moist Neck: Trachea Midline Respiratory: Symmetrical Chest Expansion and Respiratory Effort, Clear to Auscultation Cardiovascular: NL Sounds; No Murmurs; No JVD, RRR Extremities: No Edema Neurological: Alert and Oriented x 3, NL Muscle Strength and Tone Result Diagrams: 02/27/18 05:29 02/27/18 05:29 Assess/Plan/Problems-Billing Assessment: Mr. Cornejo is a 62yo M with a prior h/o tobacco abuse, bowel resection, limited contact with healthcare system, who presented to ED with c/o exertional CP, found to have NSTEMI. - Patient Problems (1) NSTEMI (non-ST elevated myocardial infarction) Comment: - Patient presented after episodes of exertional chest pain (while weeding, then while hiking). - Chest pain free now, left arm discomfort resolved. - EKG shows no ischemic changes and troponin peaked at 0.19. - Medical management with Aspirin, Heparin drip, metoprolol, high dose statin. - Awaiting echocardiogram. - Cardiology consult appreciated. - Plan for cardiac cath 02/28/18 or sooner if not able to control symptoms with medication. - If pain recurs, will transfer to ICU for nitro drip. (2) DVT prophylaxis Comment: - Heparin drip. (3) Full code status Status and Disposition: Inpatient for management of NSTEMI. (Veronica [phone]).
--- NOTE | 2018-02-27 16:48 | ECHO ---
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 Technical Comments: The study quality is good. Completed at 1220. Left Ventricle: The left ventricular chamber size is normal. Mild concentric left ventricular hypertrophy is observed. Left ventricular systolic function is at the lower limits of normal. Base of the lateral wall suboptimally seen in 4 chamber view and subtle hypokineis on short axis view. The estimated ejection fraction is 50-55%. There is no consistent Doppler evidence of clinically significant diastolic dysfunction. Left Atrium: The left atrial chamber size is normal. Right Ventricle: The right ventricular cavity size is normal. The right ventricular global systolic function is low normal. Right Atrium: The right atrial cavity size is normal. Aortic Valve: The aortic valve is trileaflet. There is a trace of aortic regurgitation. There is no evidence of aortic stenosis. Mitral Valve: The mitral valve leaflets appear normal. There is a trace of mitral regurgitation. There is no evidence of mitral stenosis. Tricuspid Valve: The tricuspid valve leaflets are normal. Unable to estimate the right ventricular systolic pressure. There is no tricuspid stenosis. Pulmonic Valve: The pulmonic valve appears normal. There is no evidence of pulmonic regurgitation. There is no pulmonic stenosis. Pericardium: A pericardial fat pad is visualized. Aorta: There is no dilatation of the ascending aorta. There is no dilatation of the aortic arch. There is mild dilatation of the aortic root. Pulmonary Artery: The main pulmonary artery appears normal. Venous: The venous system is not well visualized. Conclusions Mild concentric left ventricular hypertrophy is observed. Left ventricular systolic function is at the lower limits of normal. Base of the lateral wall suboptimally seen in 4 chamber view and subtle hypokineis on short axis view. The estimated ejection fraction is 50-55%. The right ventricular global systolic function is low normal. There is a trace of aortic regurgitation. There is a trace of mitral regurgitation. No full transthoracic echo available to compare, EF on stress echo 2006 was 55% Measurements Name Value Normal Range RVIDd (AP) 2D 2.9 cm (0.9 - 2.6) RVDdMajor (2D) 3.3 cm (2.2 - 4.4) RAd ISD 4CH 3.3 cm (3.4 - 4.9) RA (A4C)W 3.2 cm (2.9 - 4.6) IVSd (2D) 1.2 cm (0.6 - 1) LVPWd (2D) 1.2 cm (0.6 - 1) LVIDd (2D) 4.1 cm (3.6 - 5.4) LVIDs (2D) 2.6 cm - LV FS (2D) 36 % (25 - 45) Aortic Annulus 2.4 cm (1.4 - 2.6) Ao root diameter (2D) 3.7 cm (2.1 - 3.5) Ascending Ao 2.9 cm (2.1 - 3.4) Aortic arch 2.9 cm (1.8 - 3.4) Descending Ao 0.7 cm - LA dimension (AP) 2D 3.2 cm (2.3 - 3.8) LAd ISD 4CH 4.5 cm (2.9 - 5.3) LA ISD 4CH W 2.7 cm (2.5 - 4.5) Name Value Normal Range LA ESV SP 4CH (A/L) 23 ml - LA ESV SP 2CH (A/L) 47 ml - LA ESV BP (A/L) 36 ml - LA ESV BP (A/L) index 16.49 ml/m2 - LA ESV SP 4CH (MOD) 21 ml - LA ESV SP 2CH (MOD) 44 ml - Name Value Normal Range MV E-wave Vmax 0.5 m/sec - MV deceleration time 288 msec - MV A-wave Vmax 0.6 m/sec - MV E:A ratio 0.83 ratio - LV septal e' Vmax 0.09 m/sec - LV lateral e' Vmax 0.08 m/sec - LV E:e' septal ratio 5.56 ratio - LV E:e' lateral ratio 6.25 ratio - Name Value Normal Range AV Vmax 1.3 m/sec - AV VTI 25.8 cm - AV peak gradient 7.19 mmHg - AV mean gradient 3.52 mmHg - LVOT Vmax 1 m/sec - LVOT VTI 19.3 cm - LVOT peak gradient 3.84 mmHg - LVOT mean gradient 1.58 mmHg - Name Value Normal Range PV Vmax 0.7 m/sec - PV peak gradient 1.72 mmHg -
--- NOTE | 2018-02-27 17:38 | PN ---
Subjective Date of Service: 02/27/18 - CC: MESESR and chest pain Interval History: Severe MESSER yesterday, resolved. No chest or arm pain today. The patient's informed me of the patient's hx recurrent meningitis (q 5 years), felt to be viral. Medications Active Medications: Acetaminophen (Tylenol Tab*) 650 mg PO Q4H PRN PRN Reason: FEVER/PAIN Last Admin: 02/26/18 10:35 Dose: 650 mg Amlodipine Besylate (Norvasc Tab*) 5 mg PO DAILY [facility] Last Admin: 02/27/18 07:12 Dose: 5 mg Aspirin (Aspirin 81 Mg Chew Tab*) 81 mg PO DAILY [facility] Last Admin: 02/27/18 07:12 Dose: 81 mg Atorvastatin Calcium (Lipitor*) 80 mg PO DAILY [facility] Last Admin: 02/27/18 07:12 Dose: 80 mg Heparin Sodium (Porcine) (Heparin Vial(*)) 0 units IV .PER PROTOCOL PRN PRN Reason: SEE PROTOCOL Last Admin: 02/27/18 14:13 Dose: 4,000 units Hydromorphone HCl (Dilaudid Inj*) 0.5 mg IV SLOW PU Q4H PRN PRN Reason: PAIN Last Admin: 02/26/18 17:44 Dose: 0.5 mg Heparin Sodium/Dextrose (Heparin Drip 25,000 Units(*)) 25,000 units in 500 mls @ 0 mls/hr IV PER RATE [facility]; Protocol Last Admin: 02/27/18 10:14 Dose: 24 mls/hr Sodium Chloride (Ns 0.9% 1000 Ml*) 1,000 mls @ 125 mls/hr IV .per rate [facility] Metoprolol Tartrate (Lopressor Tab*) 25 mg PO BID [facility] Last Admin: 02/27/18 07:12 Dose: 25 mg Nitroglycerin (Nitroglycerin Tab 0.4 Mg*) 0.4 mg SL Q5M PRN PRN Reason: ANGINA Last Admin: 02/26/18 06:32 Dose: 0.4 mg Ticagrelor (Brilinta*) 90 mg PO BID [facility] Last Admin: 02/27/18 07:12 Dose: 90 mg Objective Vital Signs: Temp Pulse Resp BP Pulse Ox 99.0 F 69 22 128/78 97 02/27/18 15:20 02/27/18 15:20 02/27/18 15:20 02/27/18 15:20 02/27/18 15:20 Oxygen Devices in Use Now: None Appearance: jovial appearing gentleman walking in his room, NAD Eyes: No Scleral Icterus, PERRLA Ears/Nose/Mouth/Throat: Clear Oropharnyx, Mucous Membranes Moist Neck: NL Appearance and Movements; NL JVP, No Thyroid Enlargement, Masses Respiratory: Symmetrical Chest Expansion and Respiratory Effort, Clear to Auscultation Cardiovascular: NL Sounds; No Murmurs; No JVD, RRR Abdominal: No Hepatosplenomegaly Extremities: No Edema, No Clubbing, Cyanosis Skin: No Rash or Ulcers Neurological: Alert and Oriented x 3, NL Muscle Strength and Tone Lines/Tubes/Other Access: Clean, Dry and Intact Peripheral IV Laboratory Results: 02/27/18 05:29 02/27/18 05:29 APTT 38.4 seconds (26.0-36.3) H 02/27/18 13:25 Total Bilirubin 0.40 mg/dL (0.2-1.0) 02/26/18 06:06 AST 13 U/L (13-39) 02/26/18 06:06 ALT 14 U/L (7-52) 02/26/18 06:06 Alkaline Phosphatase 80 U/L (34-104) 02/26/18 06:06 Total Protein 6.0 g/dL (6.4-8.9) L 02/26/18 06:06 Albumin 3.5 g/dL (3.2-5.2) 02/26/18 06:06 Globulin 2.5 g/dL (2-4) 02/26/18 06:06 Albumin/Globulin Ratio 1.4 (1-3) 02/26/18 06:06 Triglycerides 101 mg/dL 02/26/18 06:06 Cholesterol 205 mg/dL 02/26/18 06:06 LDL Cholesterol 140 mg/dL 02/26/18 06:06 HDL Cholesterol 45.0 mg/dL 02/26/18 06:06 TSH 1.48 mcIU/mL (0.34-5.60) 02/26/18 06:06 02/25/18 02/25/18 02/26/18 18:07 20:54 01:48 Troponin I 0.01 0.10 H* 0.19 H* 02/26/18 02/26/18 02/26/18 06:06 09:10 11:59 Troponin I 0.16 H* 0.12 H* 0.11 H* 02/26/18 02/26/18 02/26/18 17:14 20:14 22:43 Troponin I 0.10 H* 0.07 H* 0.07 H* 02/27/18 02/27/18 02:09 05:29 Troponin I 0.07 H* 0.06 H* Diagnostic Imaging: ECHO: EF 55%, subtle relative hypok base of the lateral wall. Good valve function. Assessment/Plan 62 yo with NQMI, CP resolved with medical management and troponins declining. CAD risks of mild dyslipidemia, probable HTN, metabolic syndrome, distant smoking and drug use. Plan: Cath in AM, Dr Darling has seen the patient. Continue current medications for now.
[2018-02-28] MEDS ORDERED: NS 0.9% 1000 ML* 1,000 ML IV SCH (06:00)
[2018-02-28] MEDS: Heparin DRIP 25,000 UNITS(*) 25,000 UNITS/500 ML BAG IV SCH (06:00)
[2018-02-28 06:27] LABS: ABS Basophils 0.1 10^3/ul (0-0.2); ABS Eosinophils 0.2 10^3/ul (0-0.6); ABS Monocytes 0.6 10^3/ul (0-0.8); ABS Neutrophils 6.3 10^3/ul (1.5-7.7); ABS Nucleated RBC 0 10^3/ul; Eosinophil % 2.1 % (0-6); Hematocrit 44 % (42-52); Hemoglobin 15.3 g/dl (14.0-18.0); Lymphocyte % 21.8 % (25-47); Mean Corpuscular HGB Conc 35 g/dl (31-36); Mean Corpuscular Hemoglobin 30 pg (27-31); Mean Corpuscular Volume 85 fL (80-94); Mean Platelet Volume 7.6 um3 (7.4-10.4); Nucleated Red Blood Cells % 0.1; Platelet Count 212 10^3/ul (150-450); Red Blood Count 5.17 10^6/ul (4.00-5.40); Red Cell Distribution Width 14 % (10.5-15); White Blood Count 9.2 10^3/ul (3.5-10.8)
[2018-02-28 06:46] LABS: EGFR Non-African American 76.2 (>60)
[2018-02-28] MEDS: Metoprolol Tartrate TAB* 25 MG PO SCH ×2 (07:18→20:00)
[2018-02-28] MEDS: Atorvastatin* 80 MG TAB PO SCH (07:18)
[2018-02-28] MEDS: amLODIPine TAB* 5 MG PO SCH (07:19)
[2018-02-28] MEDS: Ticagrelor* 90 MG TAB PO SCH ×2 (07:19→20:00)
[2018-02-28] MEDS: Aspirin 81 mg CHEW TAB* 81 MG TAB.CHEW PO SCH (07:19)
[2018-02-28] MEDS ORDERED: VERAPAMIL 2.5 MG/ML 2 ML VIAL ** 5 mg/2 ml ONE (07:59)
[2018-02-28] MEDS ORDERED: Heparin 2 UNITS/ML IVPREMIX* 3,000 ML IV ONE (07:59)
[2018-02-28] MEDS ORDERED: fentaNYL* 50 MCG/ML 2 ML VIAL (100 MCG VIAL) ONE (07:59)
[2018-02-28] MEDS ORDERED: Heparin(*) 1000 UNIT/ML 10 ML VIAL CATH LAB IV ONE (07:59)
[2018-02-28] MEDS ORDERED: nitroGLYCERIN DRIP* 25,000 MCG/250 ML BTL ONE (08:00)
[2018-02-28] MEDS ORDERED: Iohexol 350 (CONTRAST) 200 ML MDV IV ONE (08:00)
[2018-02-28] MEDS ORDERED: Lidocaine 1%* 5 ML VIAL ONE (08:03)
[2018-02-28] MEDS ORDERED: Bivalirudin(*) 250 MG VIAL ONE (08:33)
[2018-02-28] MEDS ORDERED: Nitroglycerin TAB 0.4 MG* 0.4 MG TAB SL PRN (09:08)
--- NOTE | 2018-02-28 09:55 | PN ---
Subjective Date of Service: 02/28/18 Interval History: HOSPITALIST PROGRESS NOTE Patient seen and examined at bedside. Care reviewed and d/w Clyde Figueroa RN. He feels well at this time. Denies CP, dyspnea. Mild MESSER still present. Family History: Unchanged from Admission Social History: Unchanged from Admission Past Medical History: Unchanged from Admission Objective Active Medications: Acetaminophen (Tylenol Tab*) 650 mg PO Q4H PRN PRN Reason: FEVER/PAIN Last Admin: 02/26/18 10:35 Dose: 650 mg Amlodipine Besylate (Norvasc Tab*) 5 mg PO DAILY [facility] Last Admin: 02/28/18 07:19 Dose: 5 mg Aspirin (Aspirin 81 Mg Chew Tab*) 81 mg PO DAILY [facility] Last Admin: 02/28/18 07:19 Dose: 81 mg Atorvastatin Calcium (Lipitor*) 80 mg PO DAILY [facility] Last Admin: 02/28/18 07:18 Dose: 80 mg Hydromorphone HCl (Dilaudid Inj*) 0.5 mg IV SLOW PU Q4H PRN PRN Reason: PAIN Last Admin: 02/26/18 17:44 Dose: 0.5 mg Sodium Chloride (Ns 0.9% 1000 Ml*) 1,000 mls @ 125 mls/hr IV .per rate [facility] Stop: 02/28/18 13:00 Last Admin: 02/28/18 06:02 Dose: 125 mls/hr Metoprolol Tartrate (Lopressor Tab*) 25 mg PO BID [facility] Last Admin: 02/28/18 07:18 Dose: 25 mg Nitroglycerin (Nitroglycerin Tab 0.4 Mg*) 0.4 mg SL Q5M PRN PRN Reason: ANGINA Last Admin: 02/26/18 06:32 Dose: 0.4 mg Ticagrelor (Brilinta*) 90 mg PO BID [facility] Last Admin: 02/28/18 07:19 Dose: 90 mg Vital Signs - 8 hr 02/28/18 02/28/18 02/28/18 03:15 07:18 07:19 Temperature 98.9 F 98.0 F Pulse Rate 72 63 Respiratory 16 16 16 Rate Blood Pressure 138/85 105/72 (mmHg) O2 Sat by Pulse 96 98 Oximetry 02/28/18 02/28/18 02/28/18 08:00 09:20 09:22 Temperature Pulse Rate 61 59 Respiratory 16 12 Rate Blood Pressure 113/79 (mmHg) O2 Sat by Pulse 98 98 Oximetry 02/28/18 02/28/18 09:30 09:33 Temperature 98.2 F Pulse Rate 59 61 Respiratory 25 20 Rate Blood Pressure 103/82 113/79 (mmHg) O2 Sat by Pulse 98 97 Oximetry Oxygen Devices in Use Now: None Appearance: Pleasant gentleman lying in bed in NAD. Eyes: No Scleral Icterus Ears/Nose/Mouth/Throat: Mucous Membranes Moist Neck: Trachea Midline Respiratory: Symmetrical Chest Expansion and Respiratory Effort, Clear to Auscultation Cardiovascular: RRR - Normal S1 and S2 Extremities: - - Hemostasis band right wrist, good capillary refill Neurological: Alert and Oriented x 3, NL Muscle Strength and Tone Result Diagrams: 02/28/18 05:41 02/28/18 05:41 Assess/Plan/Problems-Billing Assessment: Mr. Cornejo is a 62yo M with a prior h/o tobacco abuse, bowel resection, limited contact with healthcare system, who presented to ED with c/o exertional CP, found to have NSTEMI. - Patient Problems (1) NSTEMI (non-ST elevated myocardial infarction) Comment: - Patient presented after episodes of exertional chest pain (while weeding, then while hiking). - EKG showed no ischemic changes and troponin peaked at 0.19. - Cath showed 90% stenosis mid RCA, s/p stent. - Continue Aspirin, Brilinta, Metoprolol, and Atorvastatin. (2) Headache Comment: - States he has had multiple episodes of meningitis (not bacterial), at least 6 times, admitted to different hospitals in [place] and [place], with extensive w /u, all negative. 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 Last episode was 4 years ago and he was admitted to [facility] [place] - awaiting records. - Continue pain management PRN. (3) DVT prophylaxis Comment: - SQ Heparin. (4) Full code status Status and Disposition: Inpatient for management of NSTEMI.
[2018-03-01 06:20] LABS: ABS Basophils 0 10^3/ul (0-0.2); ABS Eosinophils 0.3 10^3/ul (0-0.6); ABS Lymphocytes 1.8 10^3/ul (1.0-4.8); ABS Monocytes 0.6 10^3/ul (0-0.8); ABS Neutrophils 5.3 10^3/ul (1.5-7.7); ABS Nucleated RBC 0 10^3/ul; Eosinophil % 3.6 % (0-6); Hematocrit 44 % (42-52); Lymphocyte % 22.7 % (25-47); Mean Corpuscular HGB Conc 34 g/dl (31-36); Mean Corpuscular Hemoglobin 29 pg (27-31); Mean Corpuscular Volume 86 fL (80-94); Mean Platelet Volume 7.5 um3 (7.4-10.4); Nucleated Red Blood Cells % 0.1; Platelet Count 240 10^3/ul (150-450); Red Cell Distribution Width 14 % (10.5-15); White Blood Count 8.1 10^3/ul (3.5-10.8)
[2018-03-01 06:30] LABS: EGFR Non-African American 82.9 (>60)
[2018-03-01] MEDS: Atorvastatin* 80 MG TAB PO SCH (08:41)
[2018-03-01] MEDS: amLODIPine TAB* 5 MG PO SCH (08:41)
[2018-03-01] MEDS: Metoprolol Tartrate TAB* 25 MG PO SCH (08:41)
[2018-03-01] MEDS: Aspirin 81 mg CHEW TAB* 81 MG TAB.CHEW PO SCH (08:41)
[2018-03-01] MEDS: Ticagrelor* 90 MG TAB PO SCH (08:41)
[2018-03-01 10:13] VITALS: BP 118/85
--- NOTE | 2018-03-01 23:15 | CATH ---
CARDIAC CATHETERIZATION AND INTERVENTIONAL REPORT: DATE OF PROCEDURE: 02/28/18 - ROOM #ICU-07 INDICATION FOR PROCEDURE: The patient with a non-ST elevation myocardial infarction, chest discomfort, acute coronary syndrome, assess for presence of significant coronary artery disease. PROCEDURE: Coronary arteriography, primary stenting of the mid right coronary artery utilizing a 3.0 x 20 mm long Synergy drug-eluting stent postdilated to 3.3 to 3.5 mm. The patient was interviewed and examined on the floor of the hospital where the risks and benefits were explained, he understood them and wished to proceed. EQUIPMENT UTILIZED: 1. Right radial artery sheath, a 6-Malawian Glidesheath. 2. Diagnostic coronary catheter - a TIG4 curve 5-Malawian catheter, JR4 curve 5- [place]awian catheter. 3. Exchange wire was a [place] exchange, length 260 cm wire. 4. Guiding catheter - a 6-Malawian FR4 curve guide catheter. 5. Interventional guidewire was a 190 cm All Star guidewire. 6. Drug eluting stent: It was a 3.0 x 20 mm long Synergy stent. 7. Post-stent deployment balloon dilation was a 3.25 x 12 mm long NC Emerge balloon. DESCRIPTION OF PROCEDURE: The patient had his radial artery assessed under ultrasound guidance on the floor of the hospital and it was found to be acceptable for approach. As such, this approach was used. He was brought down to the cardiovascular laboratory, where a formal time-out was performed. The patient was prepped and draped in a sterile fashion. Right radial artery was cannulated and a sheath was placed. Diagnostic coronary arteriography was performed utilizing the TIG4 and JR4 curve catheters. Following this, decision was made to intervene into the right coronary artery. An ACT was checked and found to be subtherapeutic. As such, an Angiomax bolus and an Angiomax drip was started and the heparin drip was stopped. The guide catheter was utilized to perform pre-intervention coronary arteriography of the right coronary artery. The interventional wire was passed down the right coronary artery into the distal segment and the stent was delivered to the area and deployed. Following this, post-deployment inflations were made with the NC Emerge balloon. The artery was then assessed afterwards in multiple views. At the end of the case, the catheter and sheath were removed and the hemostasis was obtained with a Vasc Band. The reverse Barbeau was a B. Total contrast used was 105 cc of Omnipaque dye. The radiation exposure included 12.6 minutes of fluoro time. The air kerma radiation was 1892 milligray. The DAP radiation was 11,042 microgray per meter squared. MEDICATIONS: Given during the procedure included: 1. Angiomax bolus. 2. Angiomax drip. 3. 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 RESULTS: CORONARY ARTERIOGRAPHY: A. Left coronary artery: 1. Left main - widely patent with minimal ostial 10% narrowing. 2. Left anterior descending artery - the very proximal portion of left anterior descending artery had a mild 15% to 20% narrowing noted. The left anterior descending artery traversed towards the apical region and supplied the apical region. It supplied a first diagonal branch followed by a second small caliber diagonal branch and a third bifurcating mid diagonal branch and a small fourth trivial diagonal branch. There were mild luminal irregularities in the mid segment of the LAD with luminal reduction noted to be as much as 35% to 40%. 3. Circumflex artery - a nondominant vessel supplying a very high first obtuse marginal branch followed by a trivial small second obtuse marginal branch. There was a moderate-sized third and fourth obtuse marginal branch and ended in a low- lying posterior left ventricular branch. There was a mid lesion eccentric in nature noted to be approximately 50% to 55%. The rest of the circumflex artery had mild luminal irregularities, but no critical stenosis. B. Right coronary artery - a dominant vessel supplying the PDA and multiple posterior left ventricular branches. There was mild disease of 30% to 35% in the proximal portion after a mild ortiz's crook. The mid portion of the right coronary artery before turning onto the inferior surface had a 90% eccentric hazy- looking lesion, which was felt to be the culprit lesion. INTERVENTION INTO MID RIGHT CORONARY ARTERY: - with primary stenting utilizing a 3.0 x 20 mm long synergy drug-eluting stent postdilated to 3.3 to 3.5 mm with KERRI-3 flow, 0% residual stenosis, and no dissection seen. OVERALL ASSESSMENT: Successful intervention into critically stenosed mid right coronary artery with primary stenting as mentioned. The patient will be maintained on dual- antiplatelet for a minimum of a year. Aggressive risk factor management should be pursued. The patient will be seen by me for a wound care followup within the next week and primary cardiac care through Dr. Johnna Lamb, who saw him in consultation in the hospital. [id number]/[facility] #: [id number] MTDAnju
--- NOTE | 2018-03-02 01:27 | DS ---
CC: Dr. Lamb; Dr. Darling * DISCHARGE SUMMARY: DATE OF ADMISSION: 02/26/18 DATE OF DISCHARGE: 03/01/18 PRIMARY CARE PROVIDER: None. Our office is in the process of arranging a primary care provider. DISCHARGE DIAGNOSIS: Non-ST elevation myocardial infarction, status post stent placement to the right coronary artery, that is a drug-eluting stent. MEDICATIONS AT DISCHARGE: Include: 1. Amlodipine 5 mg daily. 2. Aspirin 81 mg daily. 3. Lipitor 80 mg daily. 4. Metoprolol tartrate 25 mg b.i.d. 5. Brilinta 90 mg b.i.d. 6. Nitroglycerin tablet 0.4 mg sublingually every 5 minutes p.r.n. angina. LABORATORY DATA AND STUDIES PERFORMED DURING THE HOSPITAL STAY: Included: On 03/01/18, sodium of 136, potassium 4.7, chloride 107, carbon dioxide 22, BUN 20 , creatinine 0.93. Troponin peaked at 0.19 on 02/26/18. On 03/01/18, white blood cell count of 8.1, hemoglobin 15.0, hematocrit 44, platelet count 240. The patient's cholesterol profile showed triglycerides of 101, cholesterol total of 205, LDL of 140, and HDL of 45. TSH was 1.48 at admission. Cardiac catheterization was performed by Dr. Darling on 02/28/18 and the official report is pending at the time of dictation. Transthoracic echocardiogram obtained on 02/25/18 showed EF of 50% to 55% with mild LVH. There was trace mitral regurgitation and aortic regurgitation. Brain CT obtained on 02/26/18, impression: "No evidence for acute intracranial abnormality. Finding suggestive of lipoma of the scalp anterior to the right frontal lobe. Recommended clinical correlation as stability." Chest x-ray obtained on 02/25/18, impression: "No radiographic evidence of acute cardiopulmonary abnormality on this portable chest x-ray." HOSPITALIZATION COURSE: Javon Cornejo is a 62-year-old male, who does not have a primary care provider and who presented to [facility] complaining of exertional chest pain when hiking. The patient was admitted to the hospital, noted to have elevated troponins and anticoagulated with heparin drip. Cardiology consult with Dr. Lamb was obtained, who involved the Interventional data processing specialist, Dr. Darling. Dr. Darling performed a cardiac catheterization on 02/28/18 with stent placement into the mid RCA. The official report of cardiac catheterization is pending at the time of dictation. Postcardiac catheterization, the patient was observed overnight in the intensive care unit with no recurrence of chest pain. He was placed on dual antiplatelet therapy with Brilinta and aspirin. He was also given amlodipine, metoprolol and atorvastatin at discharge. He was noted to have dyslipidemia. His hemoglobin A1c was noted to be 5.9 on 02/25/18. He is going to be discharged home, scheduled appointment with Dr. Darling on 03/07/18 at 3:[address] Lamb's office is going to call patient with an appointment scheduled for a followup Cardiology. Our office is also in the process of arranging primary care provider for the patient for followup. DISCHARGE INSTRUCTIONS: Specific to postcardiac catheterization, activity and restrictions were given to the patient in a printout. PHYSICAL EXAMINATION AT THE TIME OF DISCHARGE: Blood pressure of 118/85, heart rate of 63 and regular, respiratory rate 17, oxygen saturation 95% on room air, temperature of 98.9. General Appearance: The patient is a very pleasant 62- year- old male, who is in no acute distress. Alert, awake and oriented x3. HEENT: Head atraumatic, normocephalic. Eyes: Pupils are equal, reactive to light and accommodation. Oropharynx is clear. Mucosa moist. Neck: Supple. No JVD. No bruits bilaterally. Cardiovascular: Regular rate and rhythm. No murmur. Respiratory: Clear to auscultation bilaterally. Abdomen: Soft, nontender. Bowel sounds are present in all 4 quadrants. Extremities: There is no edema. Pulses are +2 bilaterally. No clubbing or cyanosis. Right radial axis was noted and puncture site was palpated. There is good radial pulse noted. On further evaluation of the skin, the patient has right frontal lipoma approximately 3 to 4 cm in diameter. The area is nontender to palpation. Please note that this is a short summary of the patient's hospitalization. Please refer to further medical records for details. TIME SPENT: Approximately 45 minutes were spent on the patient's discharge. [id number]/[facility] #: [id number] [facility]
== END 2018-03-01 12:00 | disposition home or self-care (01) | DRG 174 ==
LOC: ED 17:48 → MEDTELE 20:55 → OBSVTOIN 02-26 13:50 → ICU 02-28 09:31
PROVIDERS: ADMIT Student in an Organized Health Care Education/Training Program; ATTEND Internal Medicine
PROC: B2111ZZ Fluoroscopy of Multiple Coronary Arteries using Low Osmolar Contrast (ICD-10-PCS; 2018-02-28)
PROC: 027034Z Dilation of Coronary Artery, One Artery with Drug-eluting Intraluminal Device, Percutaneous Approach (ICD-10-PCS; principal; 2018-02-28 07:30)
DX: I21.4 Non-ST elevation (NSTEMI) myocardial infarction (principal); R42 Dizziness and giddiness; K57.90 Diverticulosis of intestine, part unspecified, without perforation or abscess without bleeding; E78.5 Hyperlipidemia, unspecified; R73.9 Hyperglycemia, unspecified; I25.10 Atherosclerotic heart disease of native coronary artery without angina pectoris; I08.1 Rheumatic disorders of both mitral and tricuspid valves; M17.0 Bilateral primary osteoarthritis of knee; R51 Headache; Z83.3 Family history of diabetes mellitus; Z90.49 Acquired absence of other specified parts of digestive tract; Z79.82 Long term (current) use of aspirin; Z79.02 Long term (current) use of antithrombotics/antiplatelets; Z82.49 Family history of ischemic heart disease and other diseases of the circulatory system; Z83.49 Family history of other endocrine, nutritional and metabolic diseases; Z72.89 Other problems related to lifestyle; Z87.891 Personal history of nicotine dependence
CPT/HCPCS: 36415; 70450; 71045; 76937; 80048; 80053; 80061; 81003; 82565; 83036; 83605; 84443; 84484; 84520; 85025; 85347; 85730; 93005; 93306; 93454; 99283; A9270-GY; C1725; C1769; C1876; C1887; C9600-RC; G0378; J0583; J1170; J1644; J1650; J2270; J3010

== ENCOUNTER 2019-11-22 15:02 | Observation (INO) | payer BC ==
--- NOTE | 2019-11-22 15:11 | ED ---
HPI Chest Pain - HPI Summary HPI Summary: 64 y/o male HTN, CAD p/w CP. Patient reports CP since . [place] like pain radiating from chest to back "in knot". Also reports left arm pain and parethesias. Feels similar to pain he had before in 2018 when he had an NSTEMI and stent. Additionally felt SOB w exertion. No cough or fever. No recent travel. Denies orthopnea. Had cardiac cath [place] [address] Darling. Had stent placed in the right coronary artery. Surgeries: intestine, meniscus, wrist FHx: CAD, ID, HTN. Brother w Bypass. Social: No tobacco, social drinking - History of Current Complaint Time Seen by Provider: 11/22/19 15:03 Hx Obtained From: Patient Onset/Duration: Started Days Ago - 6, Still Present Current Severity: Moderate Pain Intensity: 6 Pain Scale Used: 0-10 Numeric Chest Pain Radiates: Yes Chest Pain Radiates To:: Back Character: Other: - "in knot" Aggravating Factor(s): Nothing Alleviating Factor(s): Nothing Associated Signs and Symptoms: Positive: Negative - orthopnea, Other: - left arm pain and parethesias, SOB with exertion. Negative: Fever, Cough - Additional Pertinent History Primary Care Physician: [id number] - Allergy/Home Medications Allergies/Adverse Reactions: Allergies Allergy/AdvReac Type Severity Reaction Status Date / Time No Known Allergies Allergy Verified 02/01/18 06:42 Home Medications: Home Medications Aspirin 81 mg CHEW TAB* 81 mg PO DAILY #30 tab.chew 03/01/18 [Rx Confirmed 11/21] Atorvastatin* [Lipitor 80 MG*] 80 mg PO DAILY #30 tab 03/01/18 [Rx Confirmed 09/11] Glucosa Sumner 2Kcl/Chondroitin Sumner [Glucosamine & Chondroitin Cap] 1 each PO DAILY 11/22/19 [History Confirmed 11/22/19] Metoprolol Succinate XL TAB* [Toprol XL TAB*] 25 mg PO DAILY 11/22/19 [History Confirmed 11/22/19] Nitroglycerin TAB 0.4 MG* 0.4 mg SL Q5M PRN 11/22/19 [History Confirmed 11/22/19 ] Ticagrelor* [Brilinta 90 MG*] 60 mg PO BID 11/22/19 [History Confirmed 11/22/19] amLODIPine TAB* [Norvasc 5 mg TAB*] 10 mg PO DAILY 11/22/19 [History Confirmed 11/22/19] PMH/Surg Hx/FS Hx/Imm Hx Endocrine/Hematology History: Denies: Hx Anticoagulant Therapy Cardiovascular History: Reports: Hx Coronary Artery Disease, Hx Hypertension Musculoskeletal History: Reports: Hx Arthritis - OA : BOTH KNEES Sensory History: Reports: Hx Contacts or Glasses Opthamlomology History: Reports: Hx Contacts or Glasses Neurological History: Reports: Other Neuro Impairments/Disorders - multiple Spinal meningitis Hx - Surgical History Surgery Procedure, Year, and Place: BOWEL SURGERY [place]. 11/2016 LEFT MM TEAR [facility]. cardiac stent 2018 Hx Anesthesia Reactions: No Infectious Disease History: Denies: Traveled Outside the [place] in Last 30 Days - Family History Known Family History: Positive: Cardiac Disease - brother with bypass, Hypertension, Diabetes, Other - HLD - Social History Alcohol Use: Occasionally Hx Substance Use: No Substance Use Type: Reports: None Hx Tobacco Use: Yes Smoking Status (MU): Former Smoker Type: Cigarettes Amount Used/How Often: 1PPD Have You Smoked in the Last Year: No Review of Systems Negative: Fever Positive: Chest Pain Respiratory: Negative - orthopnea Positive: Shortness Of Breath. Negative: Cough Positive: Other - Left arm pain and parethesias All Other Systems Reviewed And Are Negative: Yes Physical Exam - Summary Physical Exam Summary: Constitutional: Well-developed, Well-nourished, Alert. (-) Distressed Skin: Warm, Dry HENT: Normocephalic; Atraumatic Eyes: Conjunctiva normal Neck: Musculoskeletal ROM normal neck. (-) JVD, (-) Stridor, (-) Nuchal rigidity Cardio: Rhythm regular, rate normal, Heart sounds normal; Intact distal pulses; Radial pulses are 2+ and symmetric. (-) Murmur Pulmonary/Chest wall: Effort normal. (-) Respiratory distress, (-) Wheezes, (-) Rales Abd: Soft, (-) tenderness, (-) Distension, (-) Guarding, (-) Rebound Musculoskeletal: (-) Edema Lymph: (-) Cervical adenopathy Neuro: Alert, Oriented x3 Psych: Mood and affect Normal Triage Information Reviewed: Yes Vital Signs Reviewed: Yes Procedures - Sedation Patient Received Moderate/Deep Sedation with Procedure: No Diagnostics - Laboratory Result Diagrams: 11/22/19 15:18 11/22/19 15:18 Lab Statement: Any lab studies that have been ordered have been reviewed, and results considered in the medical decision making process. - Radiology CXR Radiology Interpretation Completed By: Radiologist - IMPRESSION: NO ACTIVE CARDIOPULMONARY DISEASE IS NOTED. ED physician has reviewed this imaging report. - EKG 1510 Cardiac Rate: NL - 70 BPM EKG Rhythm: Sinus Rhythm EKG Comparison: No Significant Change - 03/01/18 Summary of EKG Findings: An EKG at 1510 reveals normal sinus rhythm 70 BPM. When compared to 03/01/18, no significant change. ED physician has reviewed and interpreted this EKG. Chest Pain Course/Dx - Course Course Of Treatment: 64 y/o male w hx CAD, HTN, stent to RCA in 2018 p/w CP. - VSS NAD. Well appearing. Chest Pain DDX: The patient is well appearing, with stable vitals. Given the patient's clinical presentation, highest on differential is ACS, reports feeling similar to when he got prior stent. Trop neg x1, pain unchanged w aspirin and nitro. EKG unchanged. D/w Dr. Lamb who recommends admission for cardiac r/o. Although less likely, differential also includes the following: --Pneumothorax: Equal breath sounds, story inconsistent since gradual onset of symptoms. CXR shows no evidence of pneumothorax. Unlikely. --Cardiac tamponade: The history and physical are not concerning for tamponade. No Pulsus Paradoxus, no tachypnea. Unlikely. -- Mediastinitis or esophageal rupture: The history is not consistent, as the patient has had no recent history of significant wretching, instrumentation, or mediastinal surgeries. Unlikely. --Aortic dissection: The patient does not describe the classical tearing chest pain radiating into the back, and the CXR does not show mediastinal widening or other signs of aortic dissection. Unlikely. --PE: Vitals wnl (not hypoxic, tachycardic or tachypneic). - Diagnoses Provider Diagnoses: Chest pain, Coronary artery disease, Shortness of breath - Provider Notifications Discussed Care Of Patient With: Johnna Lamb - Recommends admission. 1627 Dr. Harden agrees to admit. Time Discussed With Above Provider: 16:04 Discharge ED - Sign-Out/Discharge Documenting (check all that apply): Patient Departure - Discharge Plan Condition: Stable Disposition: ADMITTED TO [facility] Referrals: Johnna Lamb MD [Primary Care Provider] - - Billing Disposition and Condition Condition: STABLE Disposition: Admitted to [facility] - Attestation Statements Document Initiated by Vinh: Yes Documenting Scribe: Janet Villagomez Provider For Whom Vinh is Documenting (Include Credential): Elmer Arellano MD Scribe Attestation: I, Janet Villagomez, scribed for Elmer Arellano MD on 11/22/19 at 1653. Scribe Documentation Reviewed: Yes Provider Attestation: The documentation as recorded by the Janet umaña accurately reflects the service I personally performed and the decisions made by , Elmer Arellano MD Status of Scribe Document: Viewed
[2019-11-22] MEDS ORDERED: Aspirin 81 mg CHEW TAB* 81 MG TAB.CHEW PO ONE (15:15)
[2019-11-22] MEDS ORDERED: Nitroglycerin TAB 0.4 MG* 0.4 MG TAB SL ONE (15:15)
[2019-11-22 15:27] LABS: ABS Basophils 0.1 10^3/ul (0-0.2); ABS Eosinophils 0.1 10^3/ul (0-0.6); ABS Lymphocytes 2.2 10^3/ul (1.0-4.8); ABS Monocytes 0.7 10^3/ul (0-0.8); ABS Neutrophils 6.7 10^3/ul (1.5-7.7); Eosinophil % 1.1 %; Hematocrit 45 % (42-52); Lymphocyte % 22.5 %; Mean Corpuscular HGB Conc 35 g/dL (31-36); Mean Corpuscular Hemoglobin 31 pg (27-31); Mean Corpuscular Volume 88 fL (80-94); Mean Platelet Volume 7.2 fL (7.4-10.4); Platelet Count 278 10^3/uL (150-450); Red Blood Count 5.16 10^6 /uL (4.18-5.48); Red Cell Distribution Width 14 % (10-15); White Blood Count 9.8 10^3/uL (3.5-10.8)
[2019-11-22 15:51] LABS: ALT 31 U/L (7-52); AST 22 U/L (13-39); Albumin 4.2 g/dL (3.2-5.2); Albumin/Globulin Ratio 1.6 (1-3); Alkaline Phosphatase 76 U/L (34-104); Anion Gap 7 mmol/L (2-11); BUN/Creatinine Ratio 20.2 (8-20); Blood Urea Nitrogen 22 mg/dL (6-24); CO2 Carbon Dioxide 24 mmol/L (22-32); Calcium 9.2 mg/dL (8.6-10.3); Chloride 106 mmol/L (101-111); EGFR African American 82.9 (>60); EGFR Non-African American 68.5 (>60); Globulin 2.7 g/dL (2-4); Glucose 94 mg/dL (70-100); Potassium 4.2 mmol/L (3.5-5.0); Sodium 137 mmol/L (135-145); Total Protein 6.9 g/dL (6.4-8.9)
[2019-11-22] MEDS ORDERED: Al Hydrox/Mg Hydrox/Simet LIQ* 30 ML UDC PO PRN (17:38)
[2019-11-22] MEDS ORDERED: Acetaminophen TAB* 325 MG PO PRN (17:38)
[2019-11-22] MEDS ORDERED: Senna TAB 8.6 mg* TAB PO PRN (17:38)
[2019-11-22] MEDS ORDERED: Nitroglycerin TAB 0.4 MG* 0.4 MG TAB SL PRN (17:42)
[2019-11-22] MEDS ORDERED: Iohexol 350* (CONTRAST) 500 ML MDV IV ONE ×2 (17:46→18:54)
[2019-11-22] MEDS ORDERED: Enoxaparin(*) 40 MG/0.4 ML SYR SUBCUT SCH (18:00)
[2019-11-22 18:08] LABS: C Reactive Protein < 1.00 mg/L (<8.01)
--- NOTE | 2019-11-22 19:07 | HP ---
CC: Dr. Waqas Hastings HISTORY AND PHYSICAL: ADDENDUM: PRIMARY CARE PROVIDER: Dr. Waqas Hastings. DELVIN GIBSON [id number]/CPS #: [id number] MTDD
--- NOTE | 2019-11-22 19:31 | HP ---
CC: Dr. Lamb; Dr. Hastings * HISTORY AND PHYSICAL: DATE OF ADMISSION: 11/22/19 ATTENDING PHYSICIAN WHILE IN THE HOSPITAL: Dr. Irma Felder * (dictated by DELVIN Albarado). OUTPATIENT BURLAP SPREADER: Dr. Lamb. PRIMARY CARE PROVIDER: Dr. Waqas Hastings. CHIEF COMPLAINT: Chest pain and left arm numbness/tingling. HISTORY OF PRESENT ILLNESS: Javon Cornejo is a 64-year-old white male with past medical history significant for VT in 2018, status post PCI; hypertension; and prediabetes, who presents to the emergency department today due to persistent chest pain for 1 week. The patient tells me that starting on , 11/16/19, he was having central chest pain that started radiating to the left side of his chest as well as to his back and this lasted for 2 days. At that point, the pain stopped radiating to his back but did continue to have left sided chest pain. 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 The patient does not feel short of breath at rest. He has been feeling somewhat lightheaded when he is feeling this shortness of breath while exerting himself significantly. He additionally has been feeling pins and needles sensation to his left arm since this time, which has not gotten better, again lasting for about 1 week. The patient has had on and off headache usually when he is feeling dizziness/lightheadedness. The patient denies fevers, chills, abdominal pain, changes in vision such as blurry vision or scotoma, urinary problems, weakness in the extremities or gait changes, or slurred speech. The patient called Dr. Lamb's office to describe this chest pain and he was advised to report to the emergency department today. The patient denies cough, runny nose, nasal congestion, sore throat, and myalgias. PAST MEDICAL HISTORY: 1. VT in 2018 resulting in a drug-eluting stent to the RCA. 2. Hypertension. 3. Prediabetes. PAST SURGICAL HISTORY: 1. Right wrist surgery. 2. PCI. 3. Appendectomy and bowel resection due to what sounds like a colonic abscess. HOME MEDICATIONS: 1. Glucosamine/chondroitin cap 1 cap p.o. daily. 2. Nitroglycerin tab 0.4 mg sublingual q.5 minutes p.r.n. angina. 3. Lipitor 80 mg p.o. daily. 4. Amlodipine 10 mg p.o. daily. 5. Ticagrelor 60 mg p.o. b.i.d. 6. Metoprolol succinate 25 mg p.o. daily. 7. Aspirin 81 mg p.o. daily. ALLERGIES: No known drug allergies. FAMILY HISTORY: His mother is living at age 83. She has a history of diabetes type 2. Father started having coronary artery disease and stents placed at the age of 70 and ultimately of an VT at the age of 85. Additionally, his brother had a 4-vessel CABG. SOCIAL HISTORY: The patient lives with his . 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 He is a former smoker. He smoked for about 30 years at a pack a day and quit 7 to 8 years ago. He drinks 2 glasses of red wine every day and denies illicit drug use. REVIEW OF SYSTEMS: An 11-point review of systems was completed and all pertinent positives and negatives are above in the HPI. All other systems were negative. PHYSICAL EXAMINATION GENERAL: A white male, lying in hospital bed, who appears stated age, appearing comfortable, in no acute distress. VITAL SIGNS: Temperature 98.1, heart rate 73, respiratory rate 16, oxygen saturation 96% on room air, blood pressure 138/88. HEENT: Eyes: EOMI. PERRL. Sclerae anicteric. ENT: Mucous membranes moist. Tongue midline. NECK: Supple. Trachea midline. LUNGS: Clear to auscultation throughout. CARDIO: Regular rate and rhythm without murmurs, rubs, or gallops. ABDOMEN: Soft, nontender, nondistended. EXTREMITIES: No clubbing, cyanosis, or edema. NEURO: The patient is alert and oriented x3. Diminished sensation to light touch in the left face throughout as well as the left upper extremity and left lower extremity. Strength is 5/5 in dorsiflexion and plantarflexion bilaterally and 5/5 bilateral engineer geophysical laboratory strength as well as flexion and extension of the elbow. Negative Romberg sign. Face is symmetrical. Speech is clear. SKIN: Warm, dry, and intact. DIAGNOSTIC STUDIES/LAB DATA: White blood cell count 9.8, hemoglobin 16, hematocrit 45, platelet count 278. Sodium 137, potassium 4.2, chloride 106, carbon dioxide 24, anion gap 7, BUN 22, creatinine 1.09, glucose 94, calcium 9.2. LFTs unremarkable. Troponin 0.00, BNP 24. Chest x-ray, radiologist's impression: No active cardiopulmonary disease is noted. EKG: Normal sinus rhythm, 70 beats per minute, normal axis. No ST elevations or depressions or T-wave inversions. ASSESSMENT AND PLAN: Javon Cornejo is a 64-year-old male with past medical history significant for myocardial infarction, status post PCI; hypertension; and prediabetes, who presents to the emergency department today due to chest pain that initially radiated to the back and left arm numbness/tingling. The patient will be admitted OBV for: 1. Chest pain. The patient describes to me that initially when he was having chest pain, it was radiating to his back. This does give me concern for aortic dissection and I will rule that out with CTA of the chest. It is no longer radiating to the back and the fact that this was presenting a week ago makes me less concerned for this, but it still needs to be ruled out nonetheless. I do have concern for acute coronary syndrome given his coronary artery disease history. His initial troponin was negative and his first EKG was without any ischemic changes, but we will be trending these every 3 hours. He will be admitted on telemetry and I have ordered an echocardiogram and a stress test for tomorrow. I will be continuing his home coronary artery disease medications including metoprolol, Lipitor, aspirin, and Brilinta, and I will order nitroglycerin q.5 minutes p.r.n. angina; however, it appears this has been of little benefit and perhaps a nitroglycerin patch may be needed and we will further monitor this. 2. Left-sided diminished sensation. This patient started having left arm numbness and tingling starting at the time of his chest pain. It does make me question if maybe an aortic dissection led to carotid dissection or another etiology of cerebrovascular accident. I am ordering a CTA of the head and neck as well as a CT of the brain. If these are negative, an MRI of the brain will be in order. I am ordering an A1c and a lipid panel as well considering the patient does have a history of prediabetes. I have ordered neurological checks and the aforementioned transthoracic echocardiogram will include a bubble study due to my neurologic concerns. He has no motor deficits, but does have left- sided numbness throughout his face and extremities. At this time, he has good control of his blood pressure, but we will continue to monitor that as well. I did discuss this case briefly with Dr. Ramirez and he will be seeing this patient in consultation tomorrow. 3. Hypertension. As previously mentioned, the patient has fair control of his blood pressure at this time. I will be continuing his metoprolol and his amlodipine. 4. FEN: The patient will have a heart-healthy diet, no caffeine. He will be n.p.o. after midnight except for meds for his potential stress test if the CTA of the chest is revealing an aortic dissection. No need for electrolyte replacement or IV fluids. 5. DVT prophylaxis: The patient has a VTE risk score of 2 and I have ordered Lovenox. 6. Code status: The patient is DNR/DNI and I will be updating a MOLST. This case has been reviewed by my attending, Dr. Irma Felder, and she agrees with this plan of care. TIME SPENT: Approximately 55 minutes was spent on this admission, approximately half this time was spent at bedside evaluating the patient and discussing the plan of care and he is in agreement. DELVIN ALBARADO [id number]/CPS #: [id number] [id number]/CPS #: [id number] SALLY
[2019-11-22] MEDS: CMC:Ticagrelor (NF) 60 MG TAB PO SCH (22:27)
[2019-11-23 06:46] LABS: BUN/Creatinine Ratio 20.4 (8-20); Calcium 8.4 mg/dL (8.6-10.3); EGFR African American 93.8 (>60); EGFR Non-African American 77.5 (>60); HDL Cholesterol 56.6 mg/dL; Potassium 3.8 mmol/L (3.5-5.0)
[2019-11-23] MEDS ORDERED: Perflutren Lipid Microsphere* 3 ML VIAL ONE (08:32)
[2019-11-23] MEDS ORDERED: Metoprolol Succinate XL TAB* 25 MG PO SCH ×2 (09:00→21:00)
[2019-11-23] MEDS ORDERED: Aspirin 81 mg CHEW TAB* 81 MG TAB.CHEW PO SCH (09:00)
[2019-11-23] MEDS ORDERED: amLODIPine TAB* 5 MG PO SCH (09:00)
[2019-11-23] MEDS ORDERED: Atorvastatin* 80 MG TAB PO SCH (09:00)
[2019-11-23] MEDS: CMC:Ticagrelor (NF) 60 MG TAB PO SCH (09:43)
--- NOTE | 2019-11-23 10:43 | ECHO ---
*[facility]* [place] [address] Fax #: [phone] Transthoracic Echocardiogram Patient: Javon Cornejo : 1955 Study Date: 11/23/2019 Age: 64 Gender: M HR: 61 bpm Height: 71 in /180.3 cm BSA: 2.08 m^2 Weight: 193.6 lb /88 kg BMI: 27.1 kg/m^2 *[employer]: Alivia Azevedo RDCS RN *Referring Physician: * O'Lulu Alvarado *Reading Physician: * Vu Rosado MD Indications: CVA. History: Recent chest pain. TX with PCI 2018. Pre-diabetes. Risk factors: Former tobacco use. Hypertension. Conclusions Summary: - Left ventricle: Systolic function is at the lower limits of normal. The estimated ejection fraction is 50-55%. - Regional wall motion abnormality: Possible subtle Mild relative hypokinesis of the mid inferolateral and apical lateral myocardium. - Mitral valve: There is mild regurgitation. - Tricuspid valve: There is trace to mild regurgitation. Study data: Transthoracic echocardiogram. Procedure: Transthoracic echocardiography was performed. Image quality was fair. The study was technically limited due to smoking history. Intravenous Definity 3 ml was administered to enhance imaging. A bubble study was performed using agitated normal saline on Images 89 and 90. Complete 2D, spectral Doppler, and color flow Doppler. Location: Bedside. Patient status: Observation. Patient room number: 453. The previous study was not available, so comparison is made to the report of February 2018. Rhythm: Normal sinus rhythm. Findings Left ventricle: The cavity size is normal. Wall thickness is normal. Systolic function is at the lower limits of normal. The estimated ejection fraction is 50-55%. Regional wall motion abnormalities: Possible subtle Mild relative hypokinesis of the mid inferolateral and apical lateral myocardium. There is no consistent Doppler evidence of clinically significant diastolic dysfunction. Right ventricle: The cavity size is normal. Systolic function is low normal. Left atrium: The atrium is normal in size. Right atrium: The atrium is slightly dilated. Atrial septum: No defect or patent foramen ovale is identified. Bubble study was negative on Images 89 and 90. Mitral valve: The leaflets are mildly thickened. There is no evidence of stenosis. There is mild regurgitation. Aortic valve: The valve is trileaflet. The leaflets are mildly thickened. There is no evidence of stenosis. There is trace regurgitation. Tricuspid valve: The leaflets are normal thickness. There is trace to mild regurgitation. Pulmonic valve: The valve is structurally normal. There is no evidence of stenosis. There is trace regurgitation. Aorta: Aortic root: The aortic root is not dilated. Ascending aorta: The ascending aorta is not visualized. Aortic arch: The aortic arch is not dilated. Pericardium: There is no pericardial effusion. Pulmonary arteries: Not well visualized. Systolic pressure is within the normal range, estimated to be 26 mm Hg. Systemic veins: Inferior vena cava: The vessel is normal in size. There is normal respiratory change in the IVC dimension. Measurements Left ventricle Value Ref Aortic valve Value Ref DEVANG, LAX 5.2 cm 4.2 - 5.8 Bell diam, ED 2.4 cm ---- ESD, LAX 3.8 cm 2.5 - 4.0 Peak v, S 1.24 m/sec ---- FS, LAX 27 % 25 - 43 VTI, S 30.6 cm ---- PW, ED 0.9 cm 0.6 - 1.0 Mean grad, S 4.0 mm Hg ---- IVS/PW, ED 1 Peak grad, S 6.0 mm Hg ---- E', lat bell, TDI 11.6 cm/sec >=10.0 LVOT/AV, VTI ratio 0.64 --- - E/e', lat bell, 6 TDI Mitral valve Value Ref E', med bell, TDI 10.4 cm/sec >=7.0 Peak E 0.72 m/sec --- - E/e', med bell, 7 Peak A 0.67 m/sec ---- TDI Decel time 215 ms ---- E', avg, TDI 11.0 cm/sec Peak grad, D 2.1 mm Hg ---- E/e', avg, TDI 7 <=14 Peak E/A ratio 1.1 --- - LVOT Value Ref Pulmonic valve Value Ref Peak wilmar, S 0.97 m/sec Peak v, S 0.62 m/sec ---- VTI, S 19.7 cm Peak grad, S 2.0 mm Hg ---- Mean grad, S 2 mm Hg Tricuspid valve Value Ref Ventricular septum Value Ref Peak RV-RA grad, S 23 mm Hg ---- IVS, ED 0.9 cm 0.6 - 1.0 Max TR wilmar 2.4 m/sec ---- Right ventricle Value Ref Aortic root Value Ref DEVANG, LAX 3.3 cm Root diam 3.8 cm <4.2 DEVANG minor ax, A4C 3.1 cm 1.9 - 3.5 mid Aortic arch Value Ref Pressure, S 26 mm Hg Arch diam 2.7 cm ---- Left atrium Value Ref Decending aorta Value Ref AP dim, ES 3.00 cm 3.00 - Juan peak wilmar 0.68 m/sec ---- 4.00 ML dim, A4C 3.9 cm Pulmonary artery Value Ref SI dim, A4C 4.6 cm Pressure, S 26.0 mm Hg ---- Vol/bsa, ES, 1-p 19 ml/m^2 12 - 37 A4C Inferior vena cava Value Ref Vol/bsa, ES, A/L 29 ml/m^2 16 - 34 Diam 2.1 cm ---- Right atrium Value Ref ML dim, ES, A4C 3.8 cm 2.6 - 4.4 SI dim, ES, A4C (H) 5.4 cm 3.4 - 5.3 Estimated RAP 3 mm Hg Legend: (L) and (H) altagracia values outside specified reference range. Prepared and electronically signed by Vu Rosado MD 11/23/2019 10:42
[2019-11-23 13:03] VITALS: BP 116/85
--- NOTE | 2019-11-23 17:36 | CONS ---
NEUROLOGY CONSULTATION NOTE: DATE OF CONSULT: 11/23/19 CONSULTING PROVIDER: DELVIN Albarado. REASON FOR CONSULT: Left-sided numbness. CHIEF COMPLAINT: Left arm numbness. HISTORY OF PRESENT ILLNESS: Mr. 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 The patient informed me today that his left-sided arm numbness started 1 week ago. The exact date and time is unclear. He does carry heavy objects. He does have occasional neck discomfort. The pain seemed to involve most of his arm, radiated down to the hand. He rarely has numbness on the face and numbness in the left lower extremity. He has chronic low back pain. The numbness is very mild at this point. The numbness has not completely abated. He had a CT and an MRI of the brain without contrast that showed no acute intracranial abnormality. He had a stress echo, EKG, and troponins that were not suggestive of an AMI. The patient was in the process of going home today and does not want any further evaluation for his left-sided numbness. PAST MEDICAL HISTORY: KS in 2018, status post drug-eluting stent in the right CA, hypertension, prediabetes. PAST SURGICAL HISTORY: Right wrist surgery, PCI, appendectomy, bowel resection due to colonic abscess. HOME MEDICATIONS: 1. Aspirin 81 mg daily. 2. Ticagrelor 60 mg p.o. b.i.d. 3. Metoprolol succinate 25 mg p.o. daily. 4. Amlodipine 10 mg p.o. daily. 5. Lipitor 80 mg p.o. daily. 6. Nitroglycerin tab 0.4 mg sublingual every 5 minutes for angina. 7. Glucosamine 1 cap p.o. daily. ALLERGIES: No known drug allergies. FAMILY HISTORY: No family history of stroke or seizures. SOCIAL HISTORY: The patient lives with his . He is a former smoker. He consumes alcohol every day. He averages 2 glasses of red wine. REVIEW OF SYSTEMS: A 12-point review of systems was obtained and otherwise negative except for what was mentioned in the HPI. PHYSICAL EXAMINATION: Vitals: Temperature of 98.0, pulse of 71, respiratory rate of 16, oxygen saturation 96%, blood pressure 116/85. General: Well- nourished, well-developed man, in no acute distress. Head: Atraumatic, normocephalic. Eyes: Conjunctivae/corneas are clear. Neck is supple and symmetrical with no carotid bruit. Chest: Clear to auscultation bilaterally. No wheezing or rhonchi. Cardiovascular: Regular rate and rhythm with normal S1 , S2. Skin: No skin lesions or lacerations. Extremities: No hammertoes or high arches. Psych: Affect is broad. Normal mood. Neurological Examination: Mental Status: Awake, alert, oriented to person, place, time, general circumstance. Speech and language including repetition, comprehension, and fluency were assessed and found to be normal. Cranial Nerves: Pupils equal, round, reactive to light. Extraocular muscles intact. There is normal sensation in the face, normal facial symmetry. Tongue is symmetric and midline with no atrophy or fasciculation. Motor Examination: 5/5 strength in upper and lower extremities symmetrically bilaterally. Normal tone and bulk throughout. Sensation: Reduced sensation to pinprick on the lateral surface of the arm, anterior and posterior surface of the arm, and lateral surface of the forearm. There is also a sensory level at C4-C5. Reflexes 2+ throughout. Downgoing plantar responses bilaterally. Coordination: Normal ddivqa-pf-nftz and wfnb-au-pbyw testing bilaterally. Gait: Normal stance in gait, no ataxia. DIAGNOSTIC STUDIES/LAB DATA: WBC of 9.8, hemoglobin of 16, hematocrit of 45, platelet count of 278. BUN and creatinine ratio of 20.4, glucose of 104, LDL of 69. ASSESSMENT AND RECOMMENDATIONS: Mr. Javon Cornejo is a 64-year-old man who has a history of hypertension, dyslipidemia, myocardial infarction, status post drug- eluting stent in 2018, who presented with 1-week history of continuous persistent chest pain and left arm numbness. On neurological examination, the patient does have reduced sensation to pinprick on the left arm in a dermatomal distribution involving C5 and C6 as well as C6 and C7. There is no sensation loss on the face or on the leg. I suspect the patient's symptoms to be related to cervical radiculopathy without myelopathy. I suspect it is most likely related to his degenerative disk disease rather than a stroke. It is not a stroke because the sensation loss is only affecting the dermatomal distribution on the arm and then he is not really consistent with symptoms to be involving the face or leg. Furthermore, his symptoms have not resolved. The MRI did not show a stroke. Therefore, it is not a transient ischemic attack and it is not an acute stroke. The patient does not want to stay for further imaging of the neck. I do recommend a followup with his primary care doctor to obtain an MRI of the cervical spine as well as an EMG/ nerve conduction study of the upper extremity if the symptoms persist. The patient is already on statin therapy and antiplatelet therapy for primary stroke prevention. I do not recommend any further workup. [id number]/[facility] #: [id number] SALLY
--- NOTE | 2019-11-23 18:09 | DS ---
CC: Dr. Waqas Hastings; Dr. Lamb, Cardiology * DISCHARGE SUMMARY: DATE OF ADMISSION: 11/22/19 DATE OF DISCHARGE: 11/23/19 PRIMARY CARE PROVIDER: Dr. Waqas Hastings. DISPOSITION AT DISCHARGE: Home. CONDITION AT DISCHARGE: Fair. DISCHARGE DIAGNOSES: Chest pain and left arm numbness, possibility of radicular symptoms originating from the patient's back. The patient had a low risk cardiac stress test, brain MRI that did not show any acute findings, and CT angiogram of the chest with no acute findings apart from incidental liver abnormality. SECONDARY DIAGNOSES: 1. History of coronary artery disease with myocardial infarction in 2018, status post drug-eluting stent into RCA at that point. 2. Hypertension. 3. Prediabetes. MEDICATIONS AT DISCHARGE: Unchanged from admission and include: 1. Atorvastatin 80 mg daily. 2. Aspirin 81 mg daily. 3. Brilinta 60 mg b.i.d. 4. Nitroglycerin sublingually on a p.r.n. basis. 5. Toprol-XL 25 mg daily. 6. Glucosamine with chondroitin 1 tablet daily. 7. Norvasc 10 mg daily. LABORATORY DATA AND STUDIES PERFORMED DURING THE HOSPITAL STAY: Included the patient's troponin ranged from 0 to 0.01. On 11/23/19, sodium of 138, potassium 3.8, chloride 107, carbon dioxide 25, BUN 20, creatinine 0.98. Triglycerides were 131, cholesterol total of 152, LDL of 69, and HDL of 56. Brain MRI obtained on 11/23/19, impression: "No restricted diffusion to suggest acute infarct. There are several scattered small foci of elevated T2/ FLAIR signal within the periventricular and subcortical white matter. While these findings are nonspecific, they can be seen in association with migraine headache as the sequelae of previous infection or inflammation and chronic small vessel ischemia. Demyelinating disease is also within the differential, but is considered less likely in the absence of appropriate clinical presentation. Mild diffuse involutional change." The patient's stress test: The nuclear medicine portion of the stress test showed no fixed or reversible perfusion defects and low risk. The patient's EF was noted to be 66% at stress. The treadmill part of the stress test showed baseline chest discomfort, which was slightly worse going from 6 to 10 at baseline to 7 to 10 at maximal exercise. During the recovery, the patient experienced increased burning with left arm and hand numbness. There was no evidence of myocardial ischemia by EKG criteria. Chest discomfort and the arm numbness mildly increased with exercise and then they were back to baseline. Transthoracic echocardiogram obtained on 11/22/19: The EF was 50% to 55% with possible subtle mild relative hypokinesis of the mid inferolateral and apical lateral myocardium with mild mitral regurgitation. CT angiogram of the chest obtained on 11/22/19, impression: "Negative for aortic dissection. A 1.6 cm right hepatic hypodensity, indeterminate by density measurement. Hepatic protocol MRI may be considered." HOSPITALIZATION COURSE: Javon Cornejo is a 64-year-old male with history of coronary artery disease, who presented to the hospital complaining of left arm numbness and pain localized surrounding the area of his left breast. This pain was sharp, pleuritic, worse with exertion. The numbness was constant for the past 1 week. The patient also noted decreased exercise capacity in the past week, no cough. He came into the ED for evaluation. Here, he had extensive workup including CT angiogram of the chest, MRI of the brain, and CTA of the head which was not mentioned above, but showed impression: "No hemodynamically significant stenosis or large vessel occlusion of the intracranial circulation." Of the neck, the patient had 30% stenosis of the left common carotid artery and 20% stenosis of the right common carotid artery. The patient's transthoracic echocardiogram showed subtle mild relative hypokinesis of the mid inferolateral and apical lateral myocardium. The patient 's nuclear medicine cardiac stress test showed low risk with no evidence of decreased perfusion. The patient also walked on a treadmill and his pain was increased from 6/10 to 7/10 during exercise. There were no EKG changes. At this point, we discussed at length what may be happening. I did tell the patient that the cardiac stress test does have false negative and there was a slight possibility that his stress test is negative despite that he does have an underlying angina. Nevertheless, his troponins continued to be negative and his EKG did not show any acute changes. 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 In regards to his left arm numbness, it was present there and not worsened with movement. The patient stated that the left arm numbness and the sharp pain localized in his left breast area occurred together approximately a week prior. At this point, radicular symptoms could be the etiology of the patient's pain. The patient denies any back pain, but he states that he has degenerative disk disease of his back. I did talk with the patient about that and this is likely that he should undergo an outpatient MRI of the thoracic and C-spine for further evaluation. The patient was also informed about the 1 inch density in his liver that could be an abscess, but that should be evaluated further as an outpatient with ultrasound of the liver or MRI of the liver as radiologist recommended. Please note that the patient is being discharged with continuation of the left arm numbness, which is probably radicular etiology and he is recommended to follow up with his primary care provider with a scheduled appointment on at 10 a.m. PHYSICAL EXAMINATION: At the time of discharge, blood pressure of 116/85, heart rate of 71 and regular, respiratory rate 16, oxygen saturation 96% on room air, temperature 98.0. General: The patient is a very pleasant 64-year- old male who is in no acute distress. The patient is alert and oriented x3. HEENT: Head: Atraumatic, normocephalic. Eyes: Pupils are equal, reactive to light and accommodation. Oropharynx is clear. Mucosa moist. Neck: Supple. No JVD. No bruits bilaterally. Cardiovascular: Regular rate and rhythm. No murmur. Respiratory: Clear to auscultation bilaterally. Abdomen: Soft, nontender. Bowel sounds present in all 4 quadrants. Extremities: There is no edema. Pulses are 2+ bilaterally. No clubbing or cyanosis. Neuro Evaluation: Speech is clear. Cranial nerves II through XII grossly intact. Motor strength is 5/5 bilaterally. On palpation of the patient's thoracic and cervical back, no pain or tenderness was elicited. Please note that this is a short summary of the patient's hospitalization. Please refer to further medical records for details. TIME SPENT: Approximately 40 minutes was spent on the patient's discharge. [id number]/[facility] #: [id number] [facility]
== END 2019-11-23 16:30 | disposition home or self-care (01) ==
LOC: ED 15:02 → MEDTELE 17:38
PROVIDERS: ADMIT Internal Medicine; ATTEND Internal Medicine
DX: R07.9 Chest pain, unspecified (principal); R20.0 Anesthesia of skin; I25.2 Old myocardial infarction; I25.10 Atherosclerotic heart disease of native coronary artery without angina pectoris; I10 Essential (primary) hypertension; R06.02 Shortness of breath; R73.03 Prediabetes; Z79.01 Long term (current) use of anticoagulants; Z79.899 Other long term (current) drug therapy; Z79.82 Long term (current) use of aspirin; Z87.891 Personal history of nicotine dependence
CPT/HCPCS: 36415; 70450; 70496; 70498; 70551; 71045; 71275; 78452; 80048; 80053; 80061; 83036; 83880; 84484; 85025; 86140; 93005; 93306; 99284; A9270-GY; A9502; C8929; G0378; J1650; Q9967